=== PATIENT | male | born 1945 | race Caucasian/White ===

== ENCOUNTER 2017-08-04 11:13 | Emergency (ER) | payer OTHER, MEDICARE ==
[~2017-08-04] VITALS: Ht 180.3 cm; Wt 75.2 kg
[~2017-08-04 11:13] MED LIST: ASPIRIN EC81 MG PO; ATENOLOL25 MG PO; BABY ASPIRIN81 MG OR; DOXAZOSIN4 MG PO; FISH OIL1000 MG PO; ISOSORB MONO20 MG PO; LIPITOR20 MG PO; MAVIK2 MG OR; MELOXICAM7.5 MG PO; METFORMIN500 MG PO; NEXIUM40 M1 OR; NIACIN SR500 M1 PO; NITROGLYCER0.4 MG SL; OMEPRAZOLE20 M1 PO; PLAVIX75 MG OR; PRAVACHOL40 MG OR; RANITIDINE150 M1 PO; THIAMINE HCL100 MG PO; TRIAMCINOLON0.51 EX; ZESTRIL40 MG PO; ZETIA10 MG OR
[2017-08-04] MEDS ORDERED: STRIVERDI2.5 MCG/AC IN (12:21)
[2017-08-04] MEDS ORDERED: OXYBUTYNIN5 M1 PO (12:22)
[2017-08-04] MEDS ORDERED: TAMSULOSIN HCL0.4 MG PO (12:23)
[2017-08-04] MEDS ORDERED: AMLODIPINE5 MG PO (12:23)
[2017-08-04] MEDS ORDERED: MELOXICAM7.5 MG PO (12:28)
[2017-08-04] MEDS ORDERED: CLOPIDOGREL75 MG PO (12:30)
[2017-08-04 12:31] LABS: HEMATOCRIT 25.4 % (39.0-50.0); HEMOGLOBIN 8.2 g/dl (14.0-18.0); IMMATURE GRANULOCYTES 0.5 % (0.0-1.0); MEAN CELL VOLUME 95.5 fL CALC (80.0-100.0); MEAN CORPUSCULAR HGB 30.8 pG CALC (26.0-32.0); MEAN CORPUSCULAR HGB CONC 32.3 g/L CALC (32.0-36.0); NEUT# 4.1 thou/uL (1.82-7.42); RED BLOOD COUNT 2.66 mill/uL (4.70-6.10)
[2017-08-04 12:50] LABS: ALBUMIN 4.1 g/dL (3.2-5.0); ALKALINE PHOSPHATASE 62 u/l (38-126); ANION GAP 16 (6-22 (CALC)); BILIRUBIN, TOTAL 0.3 mg/dL (0.0-1.4); BUN 16 mg/dL (8-23); BUN/CREATININE RATIO 12 (12-20 (CALC)); CARBON DIOXIDE 23 mmol/l (22-30); CHLORIDE 106 mmol/l (95-108); CREATININE 1.4 mg/dL (0.7-1.3); GFR 50 ML/MIN (>=60 (CALC)); GFR FOR AFR.AMER. 60 ML/MIN (>=60 (CALC)); SGOT/AST 34 u/l (19-48); SGPT/ALT 26 u/l (11-66); SODIUM 140 mmol/l (137-146); TOTAL PROTEIN 6.7 g/dL (6.3-8.2)
[2017-08-04 12:51] LABS: POTASSIUM 5.2 mmol/l (3.5-5.1)
[2017-08-04 12:59] LABS: MYOGLOBIN 32 ng/mL (0 - 121)
[2017-08-04] MEDS ORDERED: ANTIVERT PO (13:11)
[2017-08-04 13:19] VITALS: BP 174/70
== END 2017-08-04 13:24 | disposition home or self-care (01) | DRG 149 ==
LOC: ED 11:13
PROVIDERS: Emergency Medicine
DX: H81.10 Benign paroxysmal vertigo, unspecified ear (principal); D64.9 Anemia, unspecified; R94.31 Abnormal electrocardiogram [ECG] [EKG]

== ENCOUNTER 2017-09-04 02:08 | Emergency (ER) | payer OTHER, MEDICARE ==
[~2017-09-04] VITALS: Ht 180.3 cm; Wt 74.2 kg
[~2017-09-04 02:08] MED LIST changes: +AMLODIPINE5 MG PO; +ANTIVERT PO; +CLOPIDOGREL75 MG PO; +OXYBUTYNIN5 M1 PO; +STRIVERDI2.5 MCG/AC IN; +TAMSULOSIN HCL0.4 MG PO
[2017-09-04] MEDS ORDERED: FERROUS GLUC324 MG PO (02:23)
[2017-09-04] MEDS ORDERED: AMLODIPINE BESYL5 MG PO (02:24)
[2017-09-04] MEDS ORDERED: VITAMIN B-1100 M1 PO (02:25)
[2017-09-04] MEDS ORDERED: CENTRUM SILVER PO (02:25)
[2017-09-04] MEDS ORDERED: TORADOL PO (04:28)
[2017-09-04] MEDS ORDERED: MEDDOSEPAK PO (04:28)
[2017-09-04 04:30] VITALS: BP 136/74
== END 2017-09-04 04:42 | disposition home or self-care (01) | DRG 552 ==
LOC: ED 02:08
DX: M47.812 Spondylosis without myelopathy or radiculopathy, cervical region (principal); M54.2 Cervicalgia; X50.1XXA Overexertion from prolonged static or awkward postures, initial encounter; Y93.89 Activity, other specified; Y92.007 Garden or yard of unspecified non-institutional (private) residence as the place of occurrence of the external cause

== ENCOUNTER 2018-06-18 12:47 | Emergency (ER) | payer OTHER, MEDICARE ==
[~2018-06-18] VITALS: Ht 180.3 cm; Wt 75.0 kg
[~2018-06-18 12:47] MED LIST changes: +AMLODIPINE BESYL5 MG PO; +CENTRUM SILVER PO; +FERROUS GLUC324 MG PO; +MEDDOSEPAK PO; +TORADOL PO; +VITAMIN B-1100 M1 PO
[2018-06-18] MEDS ORDERED: TRAMADOL HCL50 MG PO (13:08)
[2018-06-18] MEDS ORDERED: ATENOLOL50 MG PO (13:10)
[2018-06-18] MEDS ORDERED: LISINOPRIL20 MG PO (13:11)
[2018-06-18] MEDS ORDERED: VITAMIN D31000 UNI1 PO (13:13)
[2018-06-18 13:41] LABS: IMMATURE GRANULOCYTES 0.4 % (0.0-5.0); MEAN CELL VOLUME 91.4 fL CALC (80.0-100.0); MEAN CORPUSCULAR HGB 32.5 pG CALC (26.0-32.0); MEAN CORPUSCULAR HGB CONC 35.5 g/L CALC (32.0-36.0); NEUT# 8.25 thou/uL (1.82-7.42); RED BLOOD COUNT 4.19 mill/uL (4.70-6.10)
[2018-06-18 13:47] LABS: HEMATOCRIT 38.3 % (39.0-50.0); HEMOGLOBIN 13.6 g/dl (14.0-18.0)
[2018-06-18 13:54] LABS: ALBUMIN 4.4 g/dL (3.2-5.0); ALKALINE PHOSPHATASE 82 u/l (38-126); BUN 10 mg/dL (8-23); BUN/CREATININE RATIO 15 (12-20 (CALC)); CARBON DIOXIDE 25 mmol/l (22-30); CHLORIDE 96 mmol/l (95-108); CREATININE 0.6 mg/dL (0.7-1.3); GFR > 60 ML/MIN (>=60 (CALC)); GFR FOR AFR.AMER. > 60 ML/MIN (>=60 (CALC)); LIPASE 136 u/l (23-300); POTASSIUM 4.3 mmol/l (3.5-5.1); SGOT/AST 42 u/l (19-48); TOTAL PROTEIN 7.2 g/dL (6.3-8.2)
[2018-06-18 14:07] LABS: ANION GAP 14 (6-22 (CALC)); SODIUM 131 mmol/l (137-146)
[2018-06-18 16:58] VITALS: BP 136/78
== END 2018-06-18 17:06 | disposition home or self-care (01) | DRG 948 ==
LOC: ED 12:47
PROVIDERS: Family Medicine
DX: R53.1 Weakness (principal); J44.9 Chronic obstructive pulmonary disease, unspecified; I10 Essential (primary) hypertension; I25.2 Old myocardial infarction; I65.23 Occlusion and stenosis of bilateral carotid arteries; Z95.5 Presence of coronary angioplasty implant and graft
CPT/HCPCS: Q9967

== ENCOUNTER 2018-07-26 00:41 | Emergency (ER) | payer OTHER, MEDICARE ==
[~2018-07-26] VITALS: Ht 180.3 cm; Wt 75.0 kg
[~2018-07-26 00:41] MED LIST changes: +ATENOLOL50 MG PO; +LISINOPRIL20 MG PO; +TRAMADOL HCL50 MG PO; +VITAMIN D31000 UNI1 PO
[2018-07-26 03:29] VITALS: BP 141/76
== END 2018-07-26 03:30 | disposition home or self-care (01) | DRG 151 ==
LOC: ED 00:41
PROC: 2Y41X5Z Packing of Nasal Region using Packing Material (ICD-10-PCS; principal; 2018-07-26)
DX: R04.0 Epistaxis (principal); J44.9 Chronic obstructive pulmonary disease, unspecified; I10 Essential (primary) hypertension; I25.2 Old myocardial infarction; Z95.5 Presence of coronary angioplasty implant and graft; Z79.82 Long term (current) use of aspirin; Z79.02 Long term (current) use of antithrombotics/antiplatelets

== ENCOUNTER 2019-08-21 | Emergency (ER) | payer OTHER, MEDICARE ==
[2019-08-21 13:40] LABS: HEMATOCRIT 36.6 % (39.0-50.0); HEMOGLOBIN 12.4 g/dl (14.0-18.0); IMMATURE GRANULOCYTES 0.5 % (0.0-5.0); MEAN CELL VOLUME 96.8 fL CALC (80.0-100.0); MEAN CORPUSCULAR HGB 32.8 pG CALC (26.0-32.0); MEAN CORPUSCULAR HGB CONC 33.9 g/L CALC (32.0-36.0); NEUT# 9.56 thou/uL (1.82-7.42); RED BLOOD COUNT 3.78 mill/uL (4.70-6.10); RED CELL DISTRI WIDTH 12.5 % (11.5-15.5)
[2019-08-21 14:02] LABS: INTERNATIONAL NORMALIZED RATIO 0.9 RATIO (0.7-1.3); PROTHROMBIN TIME 9.8 SECONDS (9.0-12.5)
[2019-08-21 14:03] LABS: ALBUMIN 4.2 g/dL (3.2-5.0); ALKALINE PHOSPHATASE 77 u/l (38-126); ANION GAP 12 (6-22 (CALC)); BILIRUBIN, TOTAL 1.2 mg/dL (0.0-1.4); BUN 20 mg/dL (8-23); BUN/CREATININE RATIO 22 (12-20 (CALC)); CARBON DIOXIDE 27 mmol/l (22-30); CHLORIDE 94 mmol/l (95-108); CREATININE 0.9 mg/dL (0.7-1.3); GFR > 60 ML/MIN (>=60 (CALC)); GFR FOR AFR.AMER. > 60 ML/MIN (>=60 (CALC)); POTASSIUM 3.7 mmol/l (3.5-5.1); SGOT/AST 34 u/l (19-48); SODIUM 129 mmol/l (137-146); TOTAL PROTEIN 7.6 g/dL (6.3-8.2)
== END 2019-08-21 18:30 | disposition short-term general hospital (02) | DRG 66 ==
PROVIDERS: Family Medicine
PROC: 0S9D3ZZ Drainage of Left Knee Joint, Percutaneous Approach (ICD-10-PCS; principal; 2019-08-21)
DX: I63.9 Cerebral infarction, unspecified (principal); G83.14 Monoplegia of lower limb affecting left nondominant side; R29.702 NIHSS score 2; M25.562 Pain in left knee; I10 Essential (primary) hypertension; J44.9 Chronic obstructive pulmonary disease, unspecified; I25.2 Old myocardial infarction; Z95.5 Presence of coronary angioplasty implant and graft

== ENCOUNTER 2019-09-08 | Emergency (ER) | payer OTHER, MEDICARE ==
[2019-09-08] MEDS ORDERED: MAGNESIUM400 M1 PO (10:20)
[2019-09-08 10:48] LABS: HEMATOCRIT 36.2 % (39.0-50.0); HEMOGLOBIN 12.2 g/dl (14.0-18.0); IMMATURE GRANULOCYTES 0.6 % (0.0-5.0); MEAN CELL VOLUME 96.3 fL CALC (80.0-100.0); MEAN CORPUSCULAR HGB 32.4 pG CALC (26.0-32.0); MEAN CORPUSCULAR HGB CONC 33.7 g/L CALC (32.0-36.0); NEUT# 7.29 thou/uL (1.82-7.42); RED BLOOD COUNT 3.76 mill/uL (4.70-6.10); RED CELL DISTRI WIDTH 13.1 % (11.5-15.5)
[2019-09-08 11:17] LABS: ANION GAP 12 (6-22 (CALC)); BUN 12 mg/dL (8-23); BUN/CREATININE RATIO 15 (12-20 (CALC)); CARBON DIOXIDE 28 mmol/l (22-30); CHLORIDE 98 mmol/l (95-108); CREATININE 0.8 mg/dL (0.7-1.3); GFR > 60 ML/MIN (>=60 (CALC)); GFR FOR AFR.AMER. > 60 ML/MIN (>=60 (CALC)); POTASSIUM 4.3 mmol/l (3.5-5.1); SODIUM 134 mmol/l (137-146)
[2019-09-08 13:10] LABS: URINE BILIRUBIN - DIPSTICK NEGATIVE (NEGATIVE); URINE BLOOD DIPSTICK LARGE (NEGATIVE); URINE COLOR RED; URINE GLUCOSE - DIPSTICK NEGATIVE (NEGATIVE); URINE KETONE NEGATIVE (NEGATIVE); URINE NITRITE - DIPSTICK NEGATIVE (Negative); URINE PH 7.5 (4.5-8.0); URINE PROTEIN - DIPSTICK 30 mg/dL (NEG-TRACE); URINE SPECIFIC GRAVITY 1.015; URINE UROBILINOGEN - DIPSTICK 0.2 E.U./dL (0.2)
[2019-09-08 13:17] LABS: URINE LEUK ESTERASE MODERATE (NEGATIVE)
[2019-09-08 13:27] LABS: URINE RBC >100 RBC/hpf (0-5)
== END 2019-09-08 12:54 | disposition home or self-care (01) | DRG 696 ==
PROVIDERS: Family Medicine
PROC: 0T9B70Z Drainage of Bladder with Drainage Device, Via Natural or Artificial Opening (ICD-10-PCS; principal; 2019-09-08)
DX: R31.9 Hematuria, unspecified (principal); I10 Essential (primary) hypertension; J44.9 Chronic obstructive pulmonary disease, unspecified; I25.2 Old myocardial infarction; Z95.5 Presence of coronary angioplasty implant and graft; Z79.82 Long term (current) use of aspirin; Z79.02 Long term (current) use of antithrombotics/antiplatelets; Z98.890 Other specified postprocedural states

== ENCOUNTER 2019-09-13 | Emergency (ER) | payer OTHER, MEDICARE ==
[~2019-09-13] MED LIST changes: +MAGNESIUM400 M1 PO
[2019-09-13 21:44] LABS: ACT PARTIAL THROMBO TIME 27.5 SECONDS (20.0-32.5); ALBUMIN 4.2 g/dL (3.2-5.0); ALKALINE PHOSPHATASE 81 u/l (38-126); ANION GAP 17 (6-22 (CALC)); BUN 9 mg/dL (8-23); BUN/CREATININE RATIO 10 (12-20 (CALC)); CARBON DIOXIDE 24 mmol/l (22-30); CHLORIDE 91 mmol/l (95-108); CREATININE 0.8 mg/dL (0.7-1.3); ETHYL ALCOHOL 278 mg/dl (0-30); GFR > 60 ML/MIN (>=60 (CALC)); GFR FOR AFR.AMER. > 60 ML/MIN (>=60 (CALC)); INTERNATIONAL NORMALIZED RATIO 0.9 RATIO (0.7-1.3); POTASSIUM 3.7 mmol/l (3.5-5.1); PROTHROMBIN TIME 9.6 SECONDS (9.0-12.5); SGOT/AST 34 u/l (19-48); SODIUM 129 mmol/l (137-146); TOTAL PROTEIN 7.1 g/dL (6.3-8.2)
[2019-09-13 21:48] LABS: HEMATOCRIT 35.2 % (39.0-50.0); HEMOGLOBIN 12.1 g/dl (14.0-18.0); IMMATURE GRANULOCYTES 0.5 % (0.0-5.0); MEAN CELL VOLUME 95.7 fL CALC (80.0-100.0); MEAN CORPUSCULAR HGB 32.9 pG CALC (26.0-32.0); MEAN CORPUSCULAR HGB CONC 34.4 g/L CALC (32.0-36.0); NEUT# 3.88 thou/uL (1.82-7.42); RED BLOOD COUNT 3.68 mill/uL (4.70-6.10); RED CELL DISTRI WIDTH 13.3 % (11.5-15.5)
[2019-09-13 21:49] LABS: BILIRUBIN, TOTAL 0.5 mg/dL (0.0-1.4)
== END 2019-09-13 23:00 | DRG 552 ==
DX: S12.120A Other displaced dens fracture, initial encounter for closed fracture (principal); S00.81XA Abrasion of other part of head, initial encounter; F10.129 Alcohol abuse with intoxication, unspecified; I10 Essential (primary) hypertension; J44.9 Chronic obstructive pulmonary disease, unspecified; I25.2 Old myocardial infarction; W01.0XXA Fall on same level from slipping, tripping and stumbling without subsequent striking against object, initial encounter; Y92.29 Other specified public building as the place of occurrence of the external cause; Z95.5 Presence of coronary angioplasty implant and graft

== ENCOUNTER 2019-09-29 23:19 | Inpatient (IN) | payer OTHER, MEDICARE ==
[~2019-09-29] VITALS: Ht 180.3 cm; Wt 54.4 kg
--- NOTE | 2019-09-29 23:20 | NUR ---
PATIENT TO ROOM 9 VIA EMS STRETCHER. PATIENT APPEARS CALM WITH REGULAR RESPIRATIONS. MD AT BEDSIDE FOR EVAL. PATIENT IS ABLE TO SPEAK CLEARLY WITH THE EXCEPTION OF NO DENTURES IN PLACE. STATES HE "LOST HIS BREATH" WHILE DRINKING TEA AND HE IS FEELING BETTER NOW. PATIENT HAD RECENT CERVICAL SX AND HAS AN ASPEN COLLAR IN PLACE. DENIES ANY C/O OF SOB AT PRESENT. TRIAGE COMPLETED AT BEDSIDE.
[2019-09-29] MEDS ORDERED: VITAMIN B-1100 M1 PO (23:37)
[2019-09-29 23:50] LABS: HEMATOCRIT 34.9 % (39.0-50.0); HEMOGLOBIN 11.6 g/dl (14.0-18.0); IMMATURE GRANULOCYTES 3.9 % (0.0-5.0); MEAN CELL VOLUME 95.1 fL CALC (80.0-100.0); MEAN CORPUSCULAR HGB 31.6 pG CALC (26.0-32.0); MEAN CORPUSCULAR HGB CONC 33.2 g/dL CAL (32.0-36.0); NEUT# 13.45 thou/uL (1.82-7.42); RED BLOOD COUNT 3.67 mill/uL (4.70-6.10)
--- NOTE | 2019-09-29 23:53 | NUR ---
CLEAR BILAT BREATH SOUNDS NO COUGH NO CONGESTION SPEECH CLEAR NO DIFF SWALLOWING DENIES DYSPNEA.STATES HE FEELS BETTER AFTER BRIEF CHOKING EPISODE WITH DRINKING TEA AT HOME DEXTER
[2019-09-30] VITALS (8 sets, daily range): BP systolic 122–146; BP diastolic 56–79
[2019-09-30 00:05] LABS: ALKALINE PHOSPHATASE 96 u/l (38-126); ANION GAP 14 (6-22 (CALC)); BUN 25 mg/dL (8-23); BUN/CREATININE RATIO 29 (12-20 (CALC)); CARBON DIOXIDE 23 mmol/l (22-30); CHLORIDE 98 mmol/l (95-108); CREATININE 0.9 mg/dL (0.7-1.3); GFR > 60 ML/MIN (>=60 (CALC)); GFR FOR AFR.AMER. > 60 ML/MIN (>=60 (CALC)); POTASSIUM 4.1 mmol/l (3.5-5.1); SODIUM 131 mmol/l (137-146); TOTAL PROTEIN 5.8 g/dL (6.3-8.2)
[2019-09-30 00:07] LABS: ALBUMIN 2.9 g/dL (3.2-5.0); BILIRUBIN, TOTAL 1.2 mg/dL (0.0-1.4); SGOT/AST 70 u/l (19-48)
--- NOTE | 2019-09-30 00:32 | NUR ---
LAB DRAWS ADDITIONAL LABS P
[2019-09-30 00:41] LABS: LIPASE 252 u/l (23-300)
--- NOTE | 2019-09-30 01:40 | NUR ---
NO COUGH NO CONGESSTION NO PAIN OF ANY SOURCE.SR NO ECTOPY W/P/D SKIN NO SOB
--- NOTE | 2019-09-30 01:55 | NUR ---
PHONE REPORT TO NURSE DANISH ZIEGLER ON MS
--- NOTE | 2019-09-30 02:00 | NUR ---
PT TRQANSPORTED TO MS RM 261 VIA WC IN STABLE CONDITION
--- NOTE | 2019-09-30 02:00 | NUR ---
PT ARRIVED TO THE FLOOR VIA WC ACCOMPANIED BY ED NURSE. PT APPEARS IN STABLE CONDITION. PT IS COUGHING, DENIES PRODUCTIVE COUGH, DRY HACKING COUGH REPORTED FOR A WEEK. V/S ASSESSED AND PT ORIENTED TO ROOM, BED, CALL SYSTEM AND LIGHTS. PT ADMISSION AND ASSESSMENT COMPLETED AT THIS TIME. POC DISCUSSED W/PT. PT MADE COMFORTABLE AND LIGHTS TURNED LOW. PT DENIES ANY OTHER NEEDS AT THIS TIME. CALL LIGHT REVIEWED W/PT AND HE HAS BEEN ENCOURAGED TO CALL NEEDS ARISE.
[2019-09-30 04:56] LABS: HEMATOCRIT 34.6 % (39.0-50.0); HEMOGLOBIN 11.5 g/dl (14.0-18.0); IMMATURE GRANULOCYTES 4.6 % (0.0-5.0); MEAN CELL VOLUME 95.8 fL CALC (80.0-100.0); MEAN CORPUSCULAR HGB 31.9 pG CALC (26.0-32.0); MEAN CORPUSCULAR HGB CONC 33.2 g/dL CAL (32.0-36.0); NEUT# 10.39 thou/uL (1.82-7.42); RED BLOOD COUNT 3.61 mill/uL (4.70-6.10)
--- NOTE | 2019-09-30 07:00 | NUR ---
REPORT RECEIVED FROM KARLIE TEIXEIRA;PT APPEARS TO BE SLEEPING IN SEMI FOWLERS POSITION;RESPIRATIONS EVEN AND UNLABORED ON RA;NO S/S OF DISTRESS NOTED;TELE MONITORING IN PLACE;IV FLUIDS INFUSING WITH EASE PER ORDER;ALL SAFETY PRECAUTIONS IN PLACE WITH BED IN THE LOWEST POSITION AND CALL LIGHT IN REACH;WILL CONTINUE TO MONITOR
--- NOTE | 2019-09-30 08:00 | NUR ---
PT RESTING IN SEMI FOWLERS POSITION,A&O X3 WITH GARBLED SPEECH NOTED;ASSESSMENT COMPLETED;PT DENIES ANY CURRENT PAIN OR DISCOMFORTS,PAIN SCALE AND REPORTING EDUCATED;RESPIRATIONS EVEN AND UNLABORED ON RA,CLEAR LUNG SOUNDS WITH FREQUENT NON-PRODUCTIVE COUGH NOTED;CERVICAL COLLAR IN PLACE;ABDOMEN SOFT ON PALPATION AND ACTIVE IN ALL 4 QUADRANTS;STRONG PEDAL PULSES;SKIN INTACT;TELE MONITORING IN PLACE;EMS #18G TO RAC INFUSING NS @ 125ML/HR,SITE APPEARS HEALTHY;NPO DIET REINFORCED;PT DENIES ANY ADDITIONAL NEEDS AND IS ENCOURAGED TO CALL FOR ASSISTANCE IF NEEDED;FALL PRECAUTIONS IN PLACE WITH BED IN THE LOWEST POSITION AND CALL LIGHT IN REACH;WILL CONTINUE TO MONITOR
--- NOTE | 2019-09-30 10:30 | NUR ---
AT BEDSIDE DISCUSSING POC WITH PT.
--- NOTE | 2019-09-30 10:35 | NUR ---
PT RESTING IN SEMI FOWLERS POSITION;DENIES ANY CURRENT PAIN OR DISCOMFORTS;RESPIRATIONS REMAIN EVEN AND UNLABORED ON RA;IV FLUIDS INFUSING WITH EASE PER ORDER;TELE MONITORING IN PLACE;NPO DIET REINFORCED;PT ENCOURAGED TO CALL FOR ASSISTANCE IF NEEDED;CALL LIGHT IN REACH;WILL CONTINUE TO MONITOR
--- NOTE | 2019-09-30 13:00 | NUR ---
PT APPEARS TO BE SLEEPING IN SEMI FOWLERS POSTION;NO S/S OF DISTRESS NOTED;RESPIRATIONS EVEN AND UNLABORED ON RA,HOB ELEVATED 30 DEGREES;IV FLUIDS INFUSING WITH EASE;TELE MONITORING IN PLACE;ALL SAFETY PRECAUTIONS REINFORCED WITH BED IN THE LOWEST POSITION AND CALL LIGHT IN REACH;WILL CONTINUE TO MONITOR
--- NOTE | 2019-09-30 14:59 | NUR ---
PT IS RESTING WITH EYES CLOSED
--- NOTE | 2019-09-30 16:15 | NUR ---
PT IS RELAXING IN BED WITH NO DISTRESS NOTED. IV SITE IS FREE FROM REDNESS OR EDEMA.
--- NOTE | 2019-09-30 19:30 | NUR ---
PT CALLED TO REPORT THAT HE FELT SOB. V/S ASSESSED. 02SAT LEVEL @94%RA. PT PLACED ON 2LNC 02 TO INCREASE 02 LEVEL AND FOR COMFORT. PT DENIES CP. PT DOES NOT APPEAR TO BE BREATHING HEAVY OR HAVING DIFFICULTY BREATHING, JUST STATES THAT HE DOES NOT FEEL LIKE HE IS GETTING ENOUGH AIR. PT HAS C-COLLAR ON AND IS LAYING IN LOW FOWLERS POSITION. ASSISTED PT POSITIONING FOR COMFORT. RESP NOTIFIED, PHYSICIAN NOTIFIED FOR NEW ORDERS. PT REPORTS HE TAKES BREATHING TREATMENTS AT HOME, BUT I AM NOT SEEING ANY ON HIS MED-REQ. PT DOES HAVE HISTORY OF COPD. NEW ORDERS RECEIVED.
--- NOTE | 2019-09-30 20:32 | NUR ---
RESP IN W/PT AT THIS TIME.
--- NOTE | 2019-09-30 23:31 | NUR ---
PT MEDICATED ORDERS PROVIDE. NO S/O DISTRESS NOTED. PT SLEEPING AT THIS TIME. V/S ASSESSED.
[2019-10-01] VITALS (11 sets, daily range): BP systolic 106–149; BP diastolic 61–84
[2019-10-01 04:53] LABS: ALBUMIN 2.4 g/dL (3.2-5.0); ALKALINE PHOSPHATASE 83 u/l (38-126); ANION GAP 11 (6-22 (CALC)); BUN 10 mg/dL (8-23); BUN/CREATININE RATIO 16 (12-20 (CALC)); CARBON DIOXIDE 24 mmol/l (22-30); CHLORIDE 101 mmol/l (95-108); CREATININE 0.6 mg/dL (0.7-1.3); GFR > 60 ML/MIN (>=60 (CALC)); GFR FOR AFR.AMER. > 60 ML/MIN (>=60 (CALC)); POTASSIUM 3.3 mmol/l (3.5-5.1); SGOT/AST 54 u/l (19-48); SODIUM 132 mmol/l (137-146)
[2019-10-01 04:54] LABS: BILIRUBIN, TOTAL 0.6 mg/dL (0.0-1.4)
--- NOTE | 2019-10-01 05:34 | NUR ---
IV ANTIBIOTIC THERAPY ADMINISTERED AT THIS TIME. PT ASKING TO GET IN THE SHOWER, ASKED PT TO WAIT UNTIL ANTIBIOTIC THERAPY IS COMPLETED, PT AGREED.
--- NOTE | 2019-10-01 07:27 | NUR ---
SHIFT CHANGE REPORT, PT AWAKE ALERT AND ORIENTED SITTING UP ON SIDE OF BED, CERVICAL COLLAR IN PLACE, IVF INFUSING, STATES HE IS ABOUT TO SHAVE BUT GOT SOB SO HE IS RESTING AT THIS TIME, CALL CARRERA IN RECH, WILL CONTINUE TO MONITOR.
[2019-10-01 08:55] LABS: HEMATOCRIT 32.8 % (39.0-50.0); HEMOGLOBIN 10.9 g/dl (14.0-18.0); MEAN CELL VOLUME 94.5 fL CALC (80.0-100.0); MEAN CORPUSCULAR HGB 31.4 pG CALC (26.0-32.0); MEAN CORPUSCULAR HGB CONC 33.2 g/dL CAL (32.0-36.0); RED BLOOD COUNT 3.47 mill/uL (4.70-6.10); RED CELL DISTRI WIDTH 12.8 % (11.5-15.5)
--- NOTE | 2019-10-01 11:00 | NUR ---
DR HAWLEY CONSULTED AND INFORMED/DISCUSED PEG TUBE PLACEMENT WITH PT WHO STATED UNDERSTANDING AND CONSENTED TO PROCEDURE.
--- NOTE | 2019-10-01 12:28 | NUR ---
OR TEAM HERE AT THIS TIME RECEIVING PT AND TRANSPORTING VIA STRETCHER TO OR, PT ALERE AND ORIENTED.
--- NOTE | 2019-10-01 12:45 | NUR ---
SITTING UP IN CHAIR, FIRST UNIT PRBC COMPLETED WITHOUT ANY ADVERSE REACTION, TOLERATED WELL. UNABLE TO START NEW IV DUE TO VEIN CONDITION, WILL CONTINUE TO MONITOR.
--- NOTE | 2019-10-01 14:10 | NUR ---
HAND OFF REPORT RECEIVED FROM SREEKANTHCASING MIXER. NO FEEDING PER PEG TUBE TODAY. PAIN OF 6/[address] VIZCARRA NOTIFIED. ORDER RECEIVED FOR MORPHINE SULFATE IV. FORM CARPENTER CONSULTED WITH CAREYPHARMACIST. PT STATES THAT HE HAS NOT HAD SIDE EFFECT TO MORPHINE. PT STATES THAT HE TOLERATED MORPHINE SULFATE PREVIOUSLY. FORM CARPENTER WILL CONTINUE TO MONITOR.
--- NOTE | 2019-10-01 14:41 | NUR ---
NURSE ZHENG SPOKE WITH PT REGARDING CODEINE ALLERGY, PT STATES HE HAS RECEIVED MORPHINE IN THE PAST WITH NO PROBLEM/REACTION. PT ALSO RECEIVED HERE IN 2005. VERIFIED ORDER FOR MORPHINE PRN PAIN
--- NOTE | 2019-10-01 16:12 | NUR ---
PATIENT RESTING COMFORTABLY IN ROOM. PT REMAINS NPO. DAY CARE SUPERVISOR WILL CONTINUE TO MONITOR.
--- NOTE | 2019-10-01 16:26 | NUR ---
PT note Patient is seen for postop functional exam. He is able to move all extremities without difficulty but is very painful in his abdomen. Functionally he is limited by postop pain so I will see him tomorrow as well but he should do well to go home with continued home health as soon as possible. He will easily be able to log roll and transfer and has a supportive family
--- NOTE | 2019-10-01 17:26 | NUR ---
PCG, PT'S CALLED AND REQUESTING THAT BUFFING LINE SET UP WORKER NOTIFY CASE MANAGEMENT THAT SHE WANTS FEEDING TUBE SUPPLIES; LIKE [employer] FOR BOLUS FEEDING; SHE ALSO REQUESTED PEG TUBE SITE DRESSINGS; NEBULIZER MACHINE; AND SUCTION MACHINE. SHE STATES THAT SHE USE [facility] AND WILL LIKE TO RECEIVE PHYSIAN ORDERS FOR ALL THE ABOVE. SHE IS REQUESTING THAT CASE MANAGEMENT FOLLOW UP WITH THE [facility]. MEDICAL OFFICE TECHNOLOGY INSTRUCTOR NOTIFIED. INFORMATION PLACED ON CASE MANAGEMENT DOOR.
--- NOTE | 2019-10-01 17:32 | NUR ---
PCG ALSO REQUESTING PEG TUBE FEEDING SUPPLIES
--- NOTE | 2019-10-01 22:00 | NUR ---
REPORT RECEIVED FROM Geovanna KUMAR RN, CARE OF PT ASSUMED @ THIS TIME.
--- NOTE | 2019-10-02 00:11 | NUR ---
PT RESTING IN BED, APPEARS COMFORTABLE AND IN NO APPARENT DISTRESS. HOB ELEVATED 45 DEGREES. CALL CARRERA WITHIN REACH. BED LOCKED IN LOW POSITION W/ BEDRAILS X2. ITEMS WITHIN REACH.
[2019-10-02 00:40] VITALS: BP 119/69
[2019-10-02 04:29] VITALS: BP 119/70
--- NOTE | 2019-10-02 04:35 | NUR ---
PT APPEARS TO BE SLEEPING COMFORTABLY. NO APPARENT DISTRESS. RESPIRATIONS REGULAR AND UNLABORED. CALL CARRERA REMAINS WITHIN REACH, FALL AND SAFETY INTERVENTIONS REMAIN IN PLACE.
[2019-10-02 05:23] LABS: HEMATOCRIT 30.2 % (39.0-50.0); HEMOGLOBIN 9.8 g/dl (14.0-18.0); MEAN CELL VOLUME 96.5 fL CALC (80.0-100.0); MEAN CORPUSCULAR HGB 31.3 pG CALC (26.0-32.0); MEAN CORPUSCULAR HGB CONC 32.5 g/dL CAL (32.0-36.0); RED BLOOD COUNT 3.13 mill/uL (4.70-6.10); RED CELL DISTRI WIDTH 13.2 % (11.5-15.5)
[2019-10-02 05:45] LABS: ALBUMIN 2.4 g/dL (3.2-5.0); ALKALINE PHOSPHATASE 86 u/l (38-126); ANION GAP 11 (6-22 (CALC)); BILIRUBIN, TOTAL 0.6 mg/dL (0.0-1.4); BUN 6 mg/dL (8-23); BUN/CREATININE RATIO 10 (12-20 (CALC)); CARBON DIOXIDE 25 mmol/l (22-30); CHLORIDE 99 mmol/l (95-108); CREATININE 0.6 mg/dL (0.7-1.3); GFR > 60 ML/MIN (>=60 (CALC)); GFR FOR AFR.AMER. > 60 ML/MIN (>=60 (CALC)); POTASSIUM 3.3 mmol/l (3.5-5.1); SGOT/AST 47 u/l (19-48); SODIUM 132 mmol/l (137-146); TOTAL PROTEIN 5.1 g/dL (6.3-8.2)
--- NOTE | 2019-10-02 08:28 | NUR ---
PT note Attempted to see patient He appeared to be resting confortably He adamantly refuses to get OOB telling me he hurts when he moves. I described log rolling to him. He again refused to get OOB. He does tell me he has been out of bed with nursing. For now, he appears to have good pain control but has anxiety about moving. I explained he needed to be on his feet at least 6 x daily but he again refused Plan to continue to encourage him. I also have explained splinted deep breathing and coughing to him which he did demonstrate
[2019-10-02 08:54] VITALS: BP 137/82
--- NOTE | 2019-10-02 08:54 | NUR ---
PT RESTING IN BED, NO SIGNS OF DISTRESS NOTED, RESP EVEN AND UNLABORED. SHALLOW/MINIMAL EFFORT. NOT PT HAS A MOIST PRODUCTIVE COUGH, PT IS SWALLOWING SPUTUM. ENCOURAGED DEEP BREATHING, PT 02 SAT 89-90% RA, PLACED PT ON 02 2L NC, SPO2 INCREASED TO 94%. PEG TUBE TO L SIDE DRESSING INTACT, C-COLLAR IN PLACE, NOTED PT HAS RED/PURPLE COLORED AREA TO L SIDE OF NECK WITH NODULES. ASSESSMENT COMPLETED, CALL LIGHT IN REACH,CONTINUE TO MONITOR.
--- NOTE | 2019-10-02 10:11 | NUR ---
PT REFUSING TO GO DOWN TO RADIOLOGY FOR CXR, STATES,"I AM NOT DOING A DAMN THING." MANAGER ORGANIZATIONAL AT BEDSIDE.
--- NOTE | 2019-10-02 11:00 | NUR ---
CALL MADE TO REGARDING USE OF PEG TUBE. PER MD STATES OK TO USE. DISCUSSED HYDROGRAPHIC SURVEYOR RECOMMENDATIONS WITH FUEL OIL CLERK, ORDERS FOR TUBE FEEDINGS.
[2019-10-02 11:07] VITALS: BP 131/81
--- NOTE | 2019-10-02 11:34 | NUR ---
PT RESTING IN BED, DISCUSSED TUBE FEEDINGS AND TIMES, PT VERBALIZED UNDERSTANDING. CHECKED PLACEMENT TO PEG TUBE, NO RESIDUAL AT THIS TIME. 2 CANS OF GLUCERNA BOLUS FEEDS GIVEN VIA PEG TUBE, PT TOLERATED WELL. HOB REMAINS ELEVATED AT 30DEG. PT VOICES NO NEEDS OR COMPLAINTS AT THIS TIME, CALL LIGHT IN REACH,CONTINUE TO MONITOR.
--- NOTE | 2019-10-02 13:28 | NUR ---
AND RADIO INTERFERENCE TROUBLE SHOOTER AT BEDSIDE
--- NOTE | 2019-10-02 13:40 | NUR ---
PT AGREED TO GO FOR CXR, PT TAKEN VIA WHEELCHAIR ACCOMPANIED BY PLASTERER MAINTENANCE.
[2019-10-02 15:12] VITALS: BP 120/70
--- NOTE | 2019-10-02 17:00 | NUR ---
DISCUSSED 1700 FEEDING WITH PT AND START OF NEW MEDICATIONS PT TAKES AT HOME, PT AGREED, CHECKED FOR RESIDUAL NONE AT THIS TIME. 2 CANS OF GLUCERNA GIVEN, PT TOLERATED WELL, HOB REMAINS AT 30DEG. NEW IV SITE OBTAINED X1 ATTEMPT. CALL LIGHT IN REACH,CONTINUE TO MONITOR.
--- NOTE | 2019-10-02 19:00 | NUR ---
REPORT RECEIVED FROM Colette STREET LPN, CARE OF PT ASSUMED @ THIS TIME. PT RESTING IN BED, NO APPARENT DISTRESS OR DISCOMFORT. DENIES NEEDS @ THIS TIME. CALL CARRERA WITHIN REACH, AGREES TO CALL PRN.
[2019-10-02 19:09] VITALS: BP 152/67
--- NOTE | 2019-10-02 21:30 | NUR ---
PHYSICAL ASSESMENT COMPLETED. VS TAKEN BY SURVEY STATISTICIAN @ 1909 ASSESSED. PLAN OF CARE REVIEWED, PT VERBALIZES UNDERSTANDING, DENIES QUESTIONS @ THIS TIME. SEE MAR FOR MED ADMINASTRATION. TUBE FEED ADMINISTERED W/O INCIDENT. 0 RESIDUAL. TOLERATED 237ML TF AND 150ML H20 FLUSH. ASPIRATION PRECAUTIONS IN PLACE W/ HOB ELEVATED 30 DEGREES. PT DENIES NEEDS @ THIS TIME, CALL CARRERA WITHIN REACH, AGREES TO CALL PRN. BED LOCKED IN LOW POSITION W/ BEDRAILS UP X2. ITEMS WITHIN REACH.
--- NOTE | 2019-10-02 22:45 | NUR ---
URINE SAMPLE COLLECTED AND SENT TO LAB
[2019-10-02 23:02] LABS: URINE BILIRUBIN - DIPSTICK NEGATIVE (NEGATIVE); URINE BLOOD DIPSTICK SMALL (NEGATIVE); URINE CLARITY CLEAR; URINE COLOR YELLOW; URINE GLUCOSE - DIPSTICK >=1000 mg/dL (NEGATIVE); URINE KETONE NEGATIVE (NEGATIVE); URINE LEUK ESTERASE NEGATIVE (Negative); URINE NITRITE - DIPSTICK NEGATIVE (Negative); URINE SPECIFIC GRAVITY 1.015
[2019-10-02 23:03] LABS: URINE PROTEIN - DIPSTICK NEGATIVE (NEG-TRACE)
[2019-10-02 23:17] LABS: URINE EPITHELIAL CELLS FEW EPI/hpf (0-FEW); URINE WBC 20-50 WBC/hpf (0-5)
[2019-10-02 23:18] LABS: URINE BACTERIA FEW hpf
[2019-10-03] VITALS (7 sets, daily range): BP systolic 128–150; BP diastolic 60–74
--- NOTE | 2019-10-03 01:16 | NUR ---
VS TAKEN BY 5TH GRADE TEACHER @ 0000 ASSESSED. PT APPEARS TO BE SLEEPING COMFORTABLY, NO APPARENT DISTRESS, RESP REGUALR AND UNLABORED. CALL CARRERA REMAINS WITHIN REACH, BED REMAINS LOCKED IN LOW POSITION W/ BEDRAILS UP X2.ITEMS REMAIN WITHIN REACH.
[2019-10-03 05:10] LABS: ALBUMIN 2.4 g/dL (3.2-5.0); ALKALINE PHOSPHATASE 87 u/l (38-126); ANION GAP 11 (6-22 (CALC)); BILIRUBIN, TOTAL 0.4 mg/dL (0.0-1.4); BUN 7 mg/dL (8-23); BUN/CREATININE RATIO 13 (12-20 (CALC)); CARBON DIOXIDE 25 mmol/l (22-30); CHLORIDE 101 mmol/l (95-108); CREATININE 0.5 mg/dL (0.7-1.3); GFR > 60 ML/MIN (>=60 (CALC)); GFR FOR AFR.AMER. > 60 ML/MIN (>=60 (CALC)); POTASSIUM 3.7 mmol/l (3.5-5.1); SGOT/AST 61 u/l (19-48); SODIUM 133 mmol/l (137-146); TOTAL PROTEIN 5.1 g/dL (6.3-8.2)
[2019-10-03 05:21] LABS: HEMATOCRIT 27.3 % (39.0-50.0); HEMOGLOBIN 9.2 g/dl (14.0-18.0); IMMATURE GRANULOCYTES 1.6 % (0.0-5.0); MEAN CELL VOLUME 93.2 fL CALC (80.0-100.0); MEAN CORPUSCULAR HGB 31.4 pG CALC (26.0-32.0); MEAN CORPUSCULAR HGB CONC 33.7 g/dL CAL (32.0-36.0); NEUT# 12.84 thou/uL (1.82-7.42); RED BLOOD COUNT 2.93 mill/uL (4.70-6.10)
--- NOTE | 2019-10-03 06:44 | NUR ---
VS TAKEN BY BIBIANA AM ASSESSED. PT APPEARS TO BE SLEEPING COMFORTABLY, NO APPARENT DISTRESS, RESP REGUALR AND UNLABORED. CALL CARRERA REMAINS WITHIN REACH, BED REMAINS LOCKED IN LOW POSITION W/ BEDRAILS UP X2.ITEMS REMAIN WITHIN REACH.
--- NOTE | 2019-10-03 07:42 | NUR ---
PT LAYING IN BED SLEEPING. AWAKENED TO COMPLETE ASSSSMENT. PT A&O X3. NO DISTRESS NOTED. PEG TUBE IN PLACE. RISIDUAL CHECKED. MINIMAL RISIDUAL NOTED. 2 CANS OF GLUCERNA GIVEN BY KRYSTLE ZIEGLER AT 0700. PT TOLERATED WELL. IS AT BEDSIDE. PT DEMONSTRATED PROPER USE OF DEVICE WITH GOAL SET AT 2000. EXPLAINED TO PT THAT DEVICE SHOULD BE USED X10 EVERY HOUR WHILE AWAKE. PT VERBALIZED UNDERSTANDING. ENCOURAGED PT TO GET OUT OF BED AND INTO A CHAIR, PT AGREED TO GET UP TO THE CHAIR AT LUNCH TIME. NO OTHER NEEDS AT THIS TIME. ASSESSMENT COMPLETED. DISCUSSED POC. CALL LIGHT IN REACH. CONTINUE TO MONITOR.
--- NOTE | 2019-10-03 11:59 | NUR ---
PT REFUSED FEEDING. PER PT "I AM NOT HUNGRY AND I DO NOT NEED THAT RIGHT NOW"
--- NOTE | 2019-10-03 12:30 | NUR ---
PT UP TO CHAIR SLEEPING. NO DISTRESS NOTED. CALL LIGHT IN REACH. CONTINUE TO MONITOR.
--- NOTE | 2019-10-03 15:30 | NUR ---
1 CAN OF GLUCERNA GIVEN. PT TOLERATED WELL
--- NOTE | 2019-10-03 19:30 | NUR ---
ASSESSMENT COMPLETED. IV SITE PATENT AND INFUSING ORDERED IVF WELL. DENIES NEEDS/PAIN. PT. REPORTS HE SPOKE WITH MD TO UPON ROUNDS IN REGARDS TO WANTING AN MRI OF HEAD R/T GARBLED/SLURRED SPEECH. PT. REPORTS THIS HAS BEEN THE SAME ON THIS ADMISSION, NO WORSENING. PLACED NOTE ON CHART A REMINDER FOR PT'S REQUEST FOR MRI. C-COLLAR IN PLACE. PEG TUBE INTACT AND CLAMPED. REMINDED PT. FOR NEED OF HOB TO BE ELEVATED 30 DEGREES, PLACED HIM INTO THIS POSITION AT THIS TIME. ENCOURAGED TO CALL FOR ANY NEEDS. CALL LIGHT IS IN REACH.
--- NOTE | 2019-10-03 23:32 | NUR ---
PT. RESTING IN BED WITH NO DISTRESS NOTED. RE-INSTRUCTED ON NEED TO REMAIN WITH HOB ELEAVTED ATLEAST 30DEGREES AND VERBALIZES UNDERSTANDING. CHARAN FISHER. DENIES NEEDS. PT. REPORTS HE IS UNSURE IF THE FORMULA WE ARE GIVING HIM VIA PEG TUBE IS IRRITATING STOMACH AND WILL DISCUSS THESE CONCERNS WITH MD TOMORROW AM.
--- NOTE | 2019-10-04 02:05 | NUR ---
PT. C/O ABDOMINAL INCISION PAIN AND MEDICATED WITH ORDERED PRN MORPHINE, WILL REASSESS. PT. REPORTS HX; OF WOUND TO COCCYX, INSPECTED AREA IS DARKENED COLOR APPEARS DRY; APPLIED AQUACEL FOAM DRESSING TO PREVENT BREAKDOWN AND ENCOURAGE TO REPOSITION OFTEN; VERBALIZES UNDERSTANDING. DENIES FURTHER NEEDS. CALL LIGHT AND URINAL IN PLACE.
[2019-10-04 04:40] VITALS: BP 124/70
--- NOTE | 2019-10-04 05:30 | NUR ---
PT. ASSISTED WITH SHOWER AND LINENS CHANGED.
--- NOTE | 2019-10-04 06:50 | NUR ---
PT. C/O ABDOMINAL INCISION PAIN AND REQUESTS PROTONIX AND ZOFRAN PRIOR TO AM FEED; MEDICATED WITH ORDERED PROTONIX, ZOFRAN, AND MORPHINE; WILL REASSESS. DENIES FURTHER NEEDS.
--- NOTE | 2019-10-04 07:00 | NUR ---
REPORT RECEIVED FROM KARLIE KOROMA;PT APPEARS TO BE SLEEPING IN SEMI FOWLERS POSITION;NO S/S OF DISTRESS NOTED;RESPIRATIONS EVEN AND UNLABORED ON RA;IV FLUIDS INFUSING WITH EASE PER ORDER;TELE MONITORING IN PLACE;NPO DIET REINFORCED;ALL SAFETY PRECAUTIONS IN PLACE WITH BED IN THE LOWEST POSITION AND CALL LIGHT IN REACH;WILL CONTINUE TO MONITOR
[2019-10-04 07:34] VITALS: BP 118/68
--- NOTE | 2019-10-04 07:50 | NUR ---
TUBE FEEDING ADMINISTERED AT THIS TIME BY KARLIE CADENA.5CC OF RESIDUAL NOTED.PT TOLERATED WELL BUT DOES REPORT INCREASED BELCHING AFTER ADMINISTRATION.WILL CONTINUE TO MONITOR
--- NOTE | 2019-10-04 08:20 | NUR ---
PT RESTING IN SEMI FOWLERS POSITION,A&O X3;ASSESSMENT COMPLETED;PT DENIES ANY CURRENT PAIN OR DISCOMFORTS,PAIN SCALE AND REPORTING EDUCATED;RESPIRATIONS SHALLOW ON RA,DIMINISHED/CLEAR LUNG SOUNDS;ABDOMEN SOFT ON PALPATION AND ACTIVE IN ALL 4 QUADRANTS,PEG TUBE TO LEFT QUADRANTS NOTED AND CHECKED FOR PATENCY WITH 30CC OF AIR FOR ASCULTATION;STRONG PEDAL PULSES;SKIN INTACT;TELE MONITORING IN PLACE;ACCUCHECK 98, NO COVERAGE NEEDED;#22G TO LFA INFUSING D5 1/2 NS @ KVO PER ORDER WITH EASE;NPO DIET REINFORCED;PT DENIES ANY ADDITIONAL NEEDS AT THIS TIME AND IS ENCOURAGED TO CALL FOR ASSISTANCE IF NEEDED;CALL LIGHT IN REACH;WILL CONTINUE TO MONITOR
[2019-10-04 09:12] LABS: HEMATOCRIT 29.7 % (39.0-50.0); HEMOGLOBIN 9.8 g/dl (14.0-18.0); MEAN CELL VOLUME 94.3 fL CALC (80.0-100.0); MEAN CORPUSCULAR HGB 31.1 pG CALC (26.0-32.0); RED BLOOD COUNT 3.15 mill/uL (4.70-6.10)
[2019-10-04 09:26] LABS: ANION GAP 11 (6-22 (CALC)); BUN 9 mg/dL (8-23); BUN/CREATININE RATIO 12 (12-20 (CALC)); CARBON DIOXIDE 28 mmol/l (22-30); CHLORIDE 101 mmol/l (95-108); CREATININE 0.7 mg/dL (0.7-1.3); GFR > 60 ML/MIN (>=60 (CALC)); GFR FOR AFR.AMER. > 60 ML/MIN (>=60 (CALC)); SODIUM 137 mmol/l (137-146)
[2019-10-04 09:29] LABS: POTASSIUM 2.9 mmol/l (3.5-5.1)
--- NOTE | 2019-10-04 09:57 | NUR ---
AT BEDSIDE DISCUSSING POC.
[2019-10-04] MEDS ORDERED: AUGMENTIN400 MG/51 VT (10:11)
--- NOTE | 2019-10-04 10:11 | NUR ---
JOSÉPHYSICAL THERAPY WORKING WITH PTCharley
[2019-10-04 10:30] VITALS: BP 117/64
--- NOTE | 2019-10-04 11:40 | NUR ---
PT RESTING IN SEMI FOWLERS POSITION;RESPIRATIONS EVEN AND UNLABORED ON RA;PT DENIES ANY CURRENT PAIN OR DISCOMFORTS;IV SITE PATENT INFUSING IV FLUIDS WITH EASE AND ABX STARTED AT THIS TIME;TUBE FEEDING ADMINISTERED AND 5CC OF RESIDUAL OBTAINED PRIOR TO FEEDING, PT TOLERATED WELL;TELE MONITORING D/C AT THIS TIME;ALL DISCHARGE INFORMATION PROVIDED AND PT INSTRUCTED TO TAKE ABX DIRECTED,FEEDIINGS VIA TBE X4/DAY WITH 150CC FLUSH OF O2.CASE OF 2CAL TO BE PROVIDED FOR HOME D/C PER FLORECITA TAVARES;ACCUCHECK 125, NO COVERAGE NEEDED;PT DENIES ANY ADDITIONAL NEEDS AT THIS TIME;WHEELCHAIR TO BE PROVIDED FOR D/C HOME;AWAITING SPOUSE FOR TRANSPORTATION HOME;WILL CONTINUE TO MONITOR
--- NOTE | 2019-10-04 12:17 | NUR ---
PT HAD 1 LOOSE/[facility] BM AND [facility] PROVIDED;IV SITE REMOVED WITH CATHETER INTACT.
--- NOTE | 2019-10-04 13:29 | NUR ---
Discharge instructions given. Patient verbalizes understanding of same. Discharged in stable condition via Wheelchair to Home with spouse. All belongings sent with pt. PT TRANSPORTED TO [facility] IN STABLE CONDITION VIA WHEELCHAIR ACCOMPANIED BY LUKE AND KINJAL DO;PT SPOUSE TO TRANSPORT PT HOME.
--- NOTE | 2019-10-04 16:38 | NUR ---
PT note Patient is seen for functional assessment and gait. He is able to get OOB to stand with CGA of 1. He is also able to ambulate to RR and perform ADL independently. He did so with min assist of 1 and vitals stable using a FWW. He needs assistance with his gait and strengthening to decrease his fall risk. He would benefit from home health physical therapy. His Am Pac is 15 indicating he would do well with the above recommendation
== END 2019-10-04 13:29 | disposition home health service (06) | DRG 393 ==
LOC: ED 23:19 → ED-I 09-30 00:06 → ED 09-30 01:31 → MS2 09-30 01:32
PROVIDERS: Nurse Practitioner Family; ADMIT Internal Medicine; ATTEND Internal Medicine
PROC: 0DH63UZ Insertion of Feeding Device into Stomach, Percutaneous Approach (ICD-10-PCS; principal; 2019-10-01)
DX: K91.89 Other postprocedural complications and disorders of digestive system (principal); J69.0 Pneumonitis due to inhalation of food and vomit; E46 Unspecified protein-calorie malnutrition; Z68.1 Body mass index [BMI] 19.9 or less, adult; R13.10 Dysphagia, unspecified; E86.0 Dehydration; K29.70 Gastritis, unspecified, without bleeding; K44.9 Diaphragmatic hernia without obstruction or gangrene; I10 Essential (primary) hypertension; E11.9 Type 2 diabetes mellitus without complications; J44.9 Chronic obstructive pulmonary disease, unspecified; E87.6 Hypokalemia; I25.10 Atherosclerotic heart disease of native coronary artery without angina pectoris; N40.0 Benign prostatic hyperplasia without lower urinary tract symptoms; F10.10 Alcohol abuse, uncomplicated; E78.5 Hyperlipidemia, unspecified; M25.562 Pain in left knee; I25.2 Old myocardial infarction; Y83.8 Other surgical procedures as the cause of abnormal reaction of the patient, or of later complication, without mention of misadventure at the time of the procedure; Z87.891 Personal history of nicotine dependence; Z95.5 Presence of coronary angioplasty implant and graft; Z79.84 Long term (current) use of oral hypoglycemic drugs; Z98.1 Arthrodesis status
CPT/HCPCS: G0378; S0164

== ENCOUNTER 2019-10-07 | Emergency (ER) | payer OTHER, MEDICARE ==
[~2019-10-07] MED LIST changes: +AUGMENTIN400 MG/51 VT
== END 2019-10-07 19:09 | disposition home or self-care (01) | DRG 204 ==
DX: R05 Cough (principal); K21.9 Gastro-esophageal reflux disease without esophagitis; J44.9 Chronic obstructive pulmonary disease, unspecified; I10 Essential (primary) hypertension; I25.10 Atherosclerotic heart disease of native coronary artery without angina pectoris; E11.9 Type 2 diabetes mellitus without complications; Z93.1 Gastrostomy status; Z95.5 Presence of coronary angioplasty implant and graft; Z98.890 Other specified postprocedural states

== ENCOUNTER 2019-10-11 | Emergency (ER) | payer OTHER, MEDICARE ==
[2019-10-11 01:13] LABS: HEMOGLOBIN 11.1 g/dl (14.0-18.0); IMMATURE GRANULOCYTES 0.8 % (0.0-5.0); MEAN CORPUSCULAR HGB 31.4 pG CALC (26.0-32.0); MEAN CORPUSCULAR HGB CONC 32.6 g/dL CAL (32.0-36.0); NEUT# 5.61 thou/uL (1.82-7.42); RED BLOOD COUNT 3.54 mill/uL (4.70-6.10); RED CELL DISTRI WIDTH 14.3 % (11.5-15.5)
[2019-10-11 01:37] LABS: ALKALINE PHOSPHATASE 93 u/l (38-126); BUN 20 mg/dL (8-23); BUN/CREATININE RATIO 34 (12-20 (CALC)); CARBON DIOXIDE 28 mmol/l (22-30); CHLORIDE 103 mmol/l (95-108); CREATININE 0.6 mg/dL (0.7-1.3); GFR > 60 ML/MIN (>=60 (CALC)); GFR FOR AFR.AMER. > 60 ML/MIN (>=60 (CALC)); SGOT/AST 82 u/l (19-48); SODIUM 137 mmol/l (137-146); TOTAL PROTEIN 5.8 g/dL (6.3-8.2)
[2019-10-11 01:39] LABS: ANION GAP 10 (6-22 (CALC)); BILIRUBIN, TOTAL 0.6 mg/dL (0.0-1.4); POTASSIUM 4.3 mmol/l (3.5-5.1)
== END 2019-10-11 06:20 | disposition home or self-care (01) | DRG 395 ==
PROVIDERS: Family Medicine
DX: K94.29 Other complications of gastrostomy (principal); R13.10 Dysphagia, unspecified; I10 Essential (primary) hypertension; J44.9 Chronic obstructive pulmonary disease, unspecified; I25.2 Old myocardial infarction; Y83.3 Surgical operation with formation of external stoma as the cause of abnormal reaction of the patient, or of later complication, without mention of misadventure at the time of the procedure; Z95.5 Presence of coronary angioplasty implant and graft; Z98.890 Other specified postprocedural states

== ENCOUNTER 2019-10-12 16:21 | Observation (INO) | payer OTHER, MEDICARE ==
[~2019-10-12] VITALS: Ht 180.3 cm; Wt 58.0 kg
--- NOTE | 2019-10-12 16:21 | NUR ---
PT TO ROOM VIA EMS WITH C COLLAR IN PLACE
--- NOTE | 2019-10-12 17:20 | NUR ---
PT ASSISTED TO [facility] FOR BM
[2019-10-12 17:54] LABS: HEMATOCRIT 35.6 % (39.0-50.0); HEMOGLOBIN 11.5 g/dl (14.0-18.0); IMMATURE GRANULOCYTES 0.8 % (0.0-5.0); MEAN CELL VOLUME 96.5 fL CALC (80.0-100.0); MEAN CORPUSCULAR HGB 31.2 pG CALC (26.0-32.0); MEAN CORPUSCULAR HGB CONC 32.3 g/dL CAL (32.0-36.0); NEUT# 6.22 thou/uL (1.82-7.42); RED BLOOD COUNT 3.69 mill/uL (4.70-6.10); RED CELL DISTRI WIDTH 14.5 % (11.5-15.5)
--- NOTE | 2019-10-12 18:00 | NUR ---
PT RESTING ON STRETCHER; NO S/S OF DISTRESS NOTED;
[2019-10-12 18:16] LABS: ALBUMIN 3.5 g/dL (3.2-5.0); ALKALINE PHOSPHATASE 100 u/l (38-126); ANION GAP 9 (6-22 (CALC)); BILIRUBIN, TOTAL 0.5 mg/dL (0.0-1.4); BUN 23 mg/dL (8-23); BUN/CREATININE RATIO 32 (12-20 (CALC)); CARBON DIOXIDE 32 mmol/l (22-30); CHLORIDE 103 mmol/l (95-108); CREATININE 0.7 mg/dL (0.7-1.3); GFR > 60 ML/MIN (>=60 (CALC)); GFR FOR AFR.AMER. > 60 ML/MIN (>=60 (CALC)); LIPASE 153 u/l (23-300); POTASSIUM 4.3 mmol/l (3.5-5.1); SGOT/AST 76 u/l (19-48); SODIUM 140 mmol/l (137-146); TOTAL PROTEIN 6.7 g/dL (6.3-8.2)
[2019-10-12 18:47] LABS: TSH, 3RD GENERATION 1.27 uIU/mL (0.47 - 4.68)
--- NOTE | 2019-10-12 19:00 | NUR ---
IN ROOM INTRODUCED SELF TO PT. NO C/O.
--- NOTE | 2019-10-12 19:07 | NUR ---
REPORT TO KARLIE CONTRERAS
--- NOTE | 2019-10-12 19:48 | NUR ---
Admission Note Report Given to: SHARIF ZIEGLER Transported by: Wheelchair X Stretcher Transported with: X Nurse Transporter X Patent IV O2 Manager Reporting Location: ICU X MS2
--- NOTE | 2019-10-12 19:50 | NUR ---
PT. TAKEN TO MD FLOOR VIA STRETCHER, NO C/O.
[2019-10-12 20:05] VITALS: BP 129/71
--- NOTE | 2019-10-12 22:00 | NUR ---
PATIENT ADMITTED FROM ER VIA STRETCHER WITH ER STAFF IN ATTENDANCE. PATIENT WAS ABLE TO SLIDE ONTO THE BED FROM STRETCHER. PATIENT IS BEING ADMITTED FOR WEAKNESS SOB. PATIENT WAS SWABBED FOR COVID 19 AND BEING TREATED ON ISOLATION AND IN NEG PRESSURE ROOM. PATIENT WITH CERVICAL CALLAR IN PLACE. PATIENT STATES THAT HE HAD SEVERE FALL THE PART OF AUGUST AND WAS TAKEN TO [facility].FINALLY HAD SURGERY 1 WEEK LATER AND THEN DEVELOPED DYSPHAGIA. WAS THEN DISCHAGRGED HOME WITH NO REHAB. IS NOT ABLE TO TAKE CARE OF HIM AND HE CAN'T CARE FOR HIMSELF. PATIENT HAS PEG TUBE INTACT-PLACED BY DR. VALENTINE HERE AFTER BEING DISCHARGED FROM [facility]. ALSO SEES PCP AT THE [facility] IN PC. ALSO SEES DR. HESTER LOCALLY. STATES THAT HE IS SUPPOSED TO BE GOING TO REHAB AT [facility] 10/13/19. [id number] LARGE WEIGHT LOSE SINCE GETTING SICK. PATIENT TAKES HN 2CAL 1 CAN Q4H VIA PEG TUBE. NPO AT THIS TIME. SALOINE LOCK TO LEFT AC INTACT AND IVF NS HUNG AND INFUSING AT 30CC/HR. PATIENT VOIDED MIKE URINE IN URINAL AND SPEC SENT TO LAB. WEAR C-COLLAR MOST OF THE TIME. PRODUCTIVE COUGH-THICK AND WHITE. PATIENT ORIENTED TO ROOM AND SURROUNDINGS. INSTRUCTED ON USE OF NURSE CALL LIGHT SYSTEM, TV REMOTE AND TELEPHONE. REVIEWED SAFETY PRECAUTIONS WITH PATIENT. CALL LIGHT IN REACH. WILL CONT TO MONITOR.
[2019-10-12 23:42] LABS: URINE BILIRUBIN - DIPSTICK NEGATIVE (NEGATIVE); URINE BLOOD DIPSTICK TRACE-INTACT (NEGATIVE); URINE COLOR YELLOW; URINE GLUCOSE - DIPSTICK NEGATIVE (NEGATIVE); URINE KETONE NEGATIVE (NEGATIVE); URINE NITRITE - DIPSTICK NEGATIVE (Negative); URINE PH 8.5 (4.5-8.0); URINE PROTEIN - DIPSTICK NEGATIVE (NEG-TRACE); URINE UROBILINOGEN - DIPSTICK 0.2 E.U./dL (0.2)
[2019-10-12 23:44] LABS: URINE LEUK ESTERASE TRACE (NEGATIVE)
[2019-10-12 23:50] VITALS: BP 138/78
--- NOTE | 2019-10-13 00:32 | NUR ---
PATIENT SITTING UP IN THE BED AT THIS TIME-AWAKE ALERT AND ORIENTEDX3. TEMP 100.5-MEDICATED WITH TYLENOL 650MG VIA TUBE ORDERED FOR TEMP. PEG TUBE INTACT-PLACEMENT CHECKED WITH STETHOSCOPE AND NO RESIDUAL. JEVITY TUBE FEEDING 1 BOX GIVEN ORDERED WITH 50CC H2O FLUSH. IVF NS HUNG ORDERED VIA LEFT AC SITE-SITE IS HEALTHY AND IVF INFUSING AT 30CC/HR. PATIENT IS NPO- SOFT TOOTHETTES PROVIDED FOR ORAL HYGEINE. SAFETY PRECAUTIONS REINFORCED. CALL LIGHT IN REACH, WILL CONT TO MONITOR.
[2019-10-13 03:00] VITALS: BP 104/67
--- NOTE | 2019-10-13 04:07 | NUR ---
PATIENT COUGHING THICK WHITE SPUTUM AND STATES FEELING SOB. O2 SAT ON RA 93%. PATIENT PLACED ON O2 VIA NASAL CANNULA AT 2LPM. HOB ELEVATED AND PATIENT GIVEN JEVITY TUBE FEEDING ORDERED VIA PEG TUBE WITHOUT ANY DIFFICULTY. 50CC OF H2O GIVEN FOR FLUSH. PATIENT VERBALIZING CONCERNS REGUARDING DEIRDRE TO REHAB AND GEETING THE HELP HE NEEDS AT HOME. ALLOWED PATIENT TO VENT. TEMP IS DOWN-97.9. CERVICALCOLLAR IN PLACE. SAFETY PRECAUTIONS REINFORCED. CALL LIGHT IN REACH. WILL CONT TO MONITOR.
--- NOTE | 2019-10-13 07:20 | NUR ---
REPORT RECEIVED FROM KARLIE OLGUIN;PT RESTING IN SEMI FOWLERS POSITION;INTRODUCED SELF TO PT AND POC DISCUSSED;RESPIRATIONS EVEN AND UNLABORED ON O2 @ 2L VIA NC;PT DENIES ANY CURRENT PAIN OR NEEDS;IV FLUIDS INFUSING WITH EASE PER ORDER;PT ENCOURAGED TO CALL FOR ASSISTANCE IF NEEDED;FALL PRECAUTIONS IN PLACE WITH BED IN THE LOWEST POSITION AND CALL LGHT IN REACH;WILL CONTINUE TO MONITOR
--- NOTE | 2019-10-13 08:00 | NUR ---
PT RESTING IN SEMI FOWLERS POSITION,A&O X3;VS OBTAINED AND ASSESSMENT COMPLETED;PT DENIES ANY CURRENT PAIN OR DISCOMFORTS,PAIN SCALE AND REPORTING EDUCATED;RESPIRATIONS SHALLOW ON O2 @ 2L VIA NC,CLEAR LUNG SOUNDS;ABDOMEN SOFT ON PALPATION AND ACTIVE IN ALL 4 QUADRANTS;PEG TUBE CHECKED FOR PATENCY VIA ASCULATION;0 RESIDUAL NOTED AND FEEDING PROVIDED AT THIS [place],PT TOLERATED WELL;TELE MONITORING IN PLACE;#20G TO LAC INFUSING NS @ 30ML/HR,SITE APPEARS HEALTHY;ACCUCHECK 133;PT DENIES ANY ADDITIONAL NEEDS AT THIS TIME AND IS ENCOURAGED TO CALL FOR ASSISTANCE IF NEEDED;CALL LIGHT IN REACH;WILL CONTINUE
[2019-10-13 08:21] VITALS: BP 121/71
[2019-10-13 10:58] VITALS: BP 122/63
--- NOTE | 2019-10-13 12:15 | NUR ---
PT RESTING IN SEMI FOWLERS POSITION;RESPIRATIONS EVEN AND UNLABORED ON O2 @ 2L VIA NC;PT DENIES ANY CURRENT PAIN OR NEEDS;TELE MONITORING IN PLACE;TUBE FEEDING PROVIDED AT THIS TIME BY SUKHDEEP PEREZ AND PT TOLERATED WELL, 0 RESIDUAL NOTED;IV FLUIDS INFUSING WITH EASE;CALL LIGHT IN REACH;WILL CONTINUE TO MONITOR
--- NOTE | 2019-10-13 13:05 | NUR ---
PT note: Patient is seen for functional assessment and discharge recommendation. It is strongly recommended he get aggressive rehab for fall prevention, endurance and strengthening with cardiac precautions and ST for dysphagia He demonstrates LE and UE weakness, sensory deficits to the LE affecting his balance and poor endurance. Further, he is in a [place] collar limiting his cervical ROM and necessitating good balance. He has poor proprioception and therefore is a very high fall risk. Therapy intervention can help reduce his fall risk, help him gain independence and decrease his burden of care
--- NOTE | 2019-10-13 15:20 | NUR ---
PT RESTING IN SEMI FOWLERS POSITION;RESPIRATIONS EVEN AND UNLABORED ON O2 @ 2L VIA NC;PT DENIES ANY CURRENT NEEDS;TELE MONITORING IN PLACE;IV FLUIDS INFUSING WITH EASE PER ORDER;ALL SAFETY PRECAUTIONS IN PLACE WITH BED IN THE LOWEST POSITION AND CALL LIGHT IN REACH;WILL CONTINUE TO MONITOR
[2019-10-13 15:23] VITALS: BP 114/64
[2019-10-13 18:25] VITALS: BP 125/64
--- NOTE | 2019-10-13 18:50 | NUR ---
PT REPORTS SOB AND "CHOKING";PT FOUND SITTING IN BED,POSITIONED TO SIDE OF BED WITH 1 PERSON ASSIST;PT COUGHING (NON-PRODUCTIVE);O2 SATS CHECKED AND WNL,O2 APPLIED FOR COMFORT;PT DENIES ANY CURRENT PAIN AND AFTER A FEW MINS REPORT THAT HE IS OK AND FEELS BETTER;ENCOURAGED TO KEEP HOB ELEVATED AT ALL TIMES ASPIRATION PRECAUTIONS OR REQUIRED DUE TO PEG FEEDINS;PT VERBALIZES UNDERSTANDING AND IS ENCOURAGED TO CALL FOR ASSISTANCE IF NEEDED;CALL LIGHT IN REACH;WILL CONTINUE TO MONITOR
--- NOTE | 2019-10-13 20:20 | NUR ---
PT RESTING IN BED, NO SIGNS OF DISTRESS NOTED, RESP EVEN AND UNLABORED. PT ALERT AND ORIENTED X3, DISCUSSED POC AND FEED, PT REFUSED FEED AT THIS TIME. CHECKED PLACEMENT OF PEG TUBE, NO RESIDUAL AT THIS TIME. MEDICATED VIA TUBE. ASSESSMENT COMPLETED, CALL LIGHT IN REACH,CONTINUE TO MONITOR.
[2019-10-13 23:15] VITALS: BP 126/55
--- NOTE | 2019-10-13 23:15 | NUR ---
PT MEDICATED FOR PAIN AND FEVER.CALL LIGHT IN REACH,CONTINUE TO MONITOR.
--- NOTE | 2019-10-14 00:20 | NUR ---
PT RESTING IN BED, DISCUSSED FEED, PT AGREED. NO RESIDUAL AT THIS TIME. PT GIVEN JEVITY 1 CAN. TOLERATED WELL. DISCUSSED START OF ZOSYN PT AGREED. CALL LIGHT IN REACH,CONTINUE TO MONITOR.
--- NOTE | 2019-10-14 04:00 | NUR ---
PT RESTING IN BED, BOLUS FEED DUE AT THIS TIME, NO RESIDUAL, MEDICATED WITH ROBITUSSIN. PT VOICES NO NEEDS OR COMPLAINTS AT THIS TIME, CALL LIGHT IN REACH,CONTINUE TO MONITOR.
[2019-10-14 04:02] VITALS: BP 104/55
[2019-10-14 07:50] VITALS: BP 113/69
--- NOTE | 2019-10-14 07:50 | NUR ---
ASSESSMENT IS COMPLETED: IV SITE IS FREE FROM REDNESS OR EDEMA. HR IS RE,GPULSES ARE STRONG X4, ABD IS SOFT WITH ACTIVE BS. BREATH SOUNDS ARE CLEAR AND DIMINISHED.TELE MONITRO IN PLACE. PEG TUBE DRESSING IS CDI. FLUSHES WELL WITH NO RESIDUAL.
--- NOTE | 2019-10-14 10:38 | NUR ---
SPOKE WITH SPOUSE RE: PT AND WHAT WAS GOING ON . PT IS TELLING FAMILY THAT HE HAS PNEUMONIA AND POSITIVE FOR THE FLU. EXPLAINED THAT HE IS NEGATIVE FOR THE FLU. HE TENDS TO PUT HIS HEAD DOWN AND THEN FEELS LIKE EVERYTHING IS COMING BACK INTO HIS THROAT. CONTINUE TO OSBERVE AND MONITOR.
[2019-10-14 11:05] VITALS: BP 112/58
--- NOTE | 2019-10-14 12:06 | NUR ---
PT TOLERATED TUBE FEEDING WELL/
--- NOTE | 2019-10-14 12:45 | NUR ---
PT IS RELAXING IN BED WITH NO DISTRESS NOTED. IV SITE IS FREE FROM REDNESS OR EDEMA.
[2019-10-14 15:25] VITALS: BP 108/60
[2019-10-14 19:50] VITALS: BP 119/60
--- NOTE | 2019-10-14 19:58 | NUR ---
PT LAYING IN BED WATCHING TV. A&O X3. NO DISTRESS NOTED. PT C/O A LITTLE BIT OF THROAT DISCOMFORT AND SOME HOARSNESS NOTED TO VOICE. PER PT HE WAS COUGHING A LOT LAST NIGHT AND HIS VOICE STARTED GOING AWAY A FEW HOURS AGO, DENIED ANY SOB OR DIFFICULTY SWALLOWING. EXPLAINED TO PT THAT IS DEVICE WOULD BE BROUGHT TO BEDSIDE AND WOULD BE INSTRUCTED ON HOW TO PROPERLY USE DEVICE. INSTRUCTIONS GIVEN TO PRESS CALL LIGHT IF ONSET OF SOB OR DIFFICULTY SWALLOWING BEGAN. PT VERBALIZED UNDERSTANDING. NO OTHER NEEDS AT THIS TIME. ASSESSMENT COMPLETED. DISCUSSED POC. CALL LIGHT IN REACH. CONTINUE TO MONITOR.
--- NOTE | 2019-10-14 22:00 | NUR ---
PT REFUSED NIGHT TIME FEEDING
[2019-10-15] VITALS (7 sets, daily range): BP systolic 106–125; BP diastolic 58–69
--- NOTE | 2019-10-15 00:06 | NUR ---
PT SLEEPING IN BED. RESP EVEN AND UNLABORED. CONTINUE TO MONITOR
--- NOTE | 2019-10-15 04:05 | NUR ---
PT REFUSED MORNING FEEDING
--- NOTE | 2019-10-15 04:29 | NUR ---
PT SLEEPING IN BED, RESP EVEN AND UNLABORED. AWAKENED TO ADMINISTER TYLENOL DUE TO TEMP OF 101.1. AC TURNED ON AND BLANKETS REMOVED. EXPLAINED REASONING BEHIND INTERVENTIONS, PT VERBALIZED UNDERSTANDING. WILL REASSES
--- NOTE | 2019-10-15 08:30 | NUR ---
ASSESSMENT IS COMPLETED: IV SITE IS FREE FROM REDNESS OR EDEMA. HR IS REG,PULSES ARE STRONG X4,A BD IS SOFT WITH ACTIVE BS. FEEDING TUBE IN PLACE.
[2019-10-15 09:01] LABS: IMMATURE GRANULOCYTES 0.7 % (0.0-5.0); MEAN CELL VOLUME 96.6 fL CALC (80.0-100.0); MEAN CORPUSCULAR HGB 31.1 pG CALC (26.0-32.0); MEAN CORPUSCULAR HGB CONC 32.2 g/dL CAL (32.0-36.0); NEUT# 7.28 thou/uL (1.82-7.42); RED BLOOD COUNT 2.96 mill/uL (4.70-6.10); RED CELL DISTRI WIDTH 14.8 % (11.5-15.5)
[2019-10-15 09:35] LABS: HEMATOCRIT 28.6 % (39.0-50.0); HEMOGLOBIN 9.2 g/dl (14.0-18.0)
--- NOTE | 2019-10-15 10:30 | NUR ---
RECEIVED A CALL FROM HIS INQUIRING HOW HER IS TODAY. EXPLAINED ABOUT HAVING A HARD TIME WITH SPEAKING DUE TO HAVING OT AND SPEECH THERAPY COME AND SEE HIM ON FRIDAY. CONTINUE TO OSBERVE AND MONITOR.
[2019-10-15 10:50] LABS: ALKALINE PHOSPHATASE 81 u/l (38-126); ANION GAP 9 (6-22 (CALC)); BUN 14 mg/dL (8-23); BUN/CREATININE RATIO 23 (12-20 (CALC)); CARBON DIOXIDE 30 mmol/l (22-30); CHLORIDE 103 mmol/l (95-108); CREATININE 0.6 mg/dL (0.7-1.3); GFR > 60 ML/MIN (>=60 (CALC)); GFR FOR AFR.AMER. > 60 ML/MIN (>=60 (CALC)); POTASSIUM 3.5 mmol/l (3.5-5.1); SGOT/AST 26 u/l (19-48); SODIUM 139 mmol/l (137-146)
[2019-10-15 10:53] LABS: ALBUMIN 2.5 g/dL (3.2-5.0); BILIRUBIN, TOTAL 0.9 mg/dL (0.0-1.4); TOTAL PROTEIN 5.1 g/dL (6.3-8.2)
--- NOTE | 2019-10-15 11:52 | NUR ---
10/14/19 Patient is seen for gait training as before. He is mod assist to ambulate in the room but does so with a FWW and vitals stable. He has a raspy voice now and is limited by dypsnea and weakness. His Am Pac is unchanged and it is strongly recommended he go to rehab for follow up care. Functionally he is able to ambulate in room only on a level surface limited by weakness and dyspnea
--- NOTE | 2019-10-15 11:54 | NUR ---
PT Note Today the patient had increased redness and tenderness of the right tibial tuberosity. When asked, he tells me he fell before he was admitted. He did not have point tendxerness and loss of ROM prior to this. I informed nursing. His Am Pac is basically unchanged and he would benefit from ECF
--- NOTE | 2019-10-15 12:00 | NUR ---
PT IS RELAXING IN BED NOT WANTING TO BE FED AT THIS TIME. CONTINUE TO OSEBRVE AND MONITOR.
--- NOTE | 2019-10-15 15:45 | NUR ---
PT TRANSPORTED TO HAVE CT OF THE CHEST COMPLETRED VIA WC. RETURNED AT 1612 VIA WC
--- NOTE | 2019-10-15 16:00 | NUR ---
PT REFUSED TO BE FED AT THIS TIME. WANTS TO WAIT UNTIL 1800 TO BE FED.
--- NOTE | 2019-10-15 16:00 | NUR ---
PT REQUEST TO BE FED AROUND 6PM NOT NOW. FEELS FULL. IV SITE IS FREE FROM REDNESS OR EDEMA. NOTE. CONTINUE TO OBSERVE AND MONITOR.
--- NOTE | 2019-10-15 16:25 | NUR ---
SPOKE WITH PTS SISTER INQUIRED ABOUT HOW PT IS DOING AND HOPEFULLY HE WILL FEEL BETTER SOON , EXPLAINED ABOUT THE FEVERS. AND WHEN IT IS RESOLVED THEN MORE CAN BE DONE. WILL CALL AGAIN TO GET AN UPDATE.
--- NOTE | 2019-10-15 20:36 | NUR ---
PT SITTING IN BED WATCHING TV. A&O X3. NO DISTRESS NOTED. PT STATES THAT HIS VOICE IS SLOWLY RETURNING BACK TO NORMAL. ENCOURAGED PT TO REST HIS VOICE, PT VERBALIZED UNDERSTANDING. NO OTHER NEEDS AT THIS TIME. ASSESSMENT COMPLETED. DISCUSSED POC. CALL LIGHT IN REACH. CONTINUE TO MONITOR.
--- NOTE | 2019-10-15 20:57 | NUR ---
DR HOUSER CONTACTED IN REGARDS TO PATIENTS BLOOD SUGAR LEVEL, NO ANSWER. VOICEMAIL LEFT
--- NOTE | 2019-10-15 21:00 | NUR ---
DR HOUSER NOTIFIED ABOUT PTS BLOOD SUGAR OF 317. PER DR HOUSER, START THE PT ON A LOW DOSE SLIDING SCALE AND MONITOR THE BLOOD SUGAR BEFORE EACH FEEDING (Q4 ACCORDING TO ORDERS)
--- NOTE | 2019-10-15 22:00 | NUR ---
PT REFUSED 10 PM FEEDING. EXPLAINED TO THE PT THE IMPORTANCE OF HIS NUTRITIONAL INTAKE/FEEDINGS, BUT PER PT " I AM FULL, NOT HUNGRY AT THIS TIME"
--- NOTE | 2019-10-15 22:45 | NUR ---
DRESSING CHANGE DONE TO BUTTOCKS TO PREVENT ANY SKIN TEARS OR DAMAGE. PT TOLERATED WELL.
--- NOTE | 2019-10-15 23:28 | NUR ---
PER PT HE FEELS LIKE HE HAS A FEVER, TEMP TAKEN. TEMP 98.8. EXPLAINED TO PT THAT HE DID NOT HAVE A FEVER, EXTRA SHEETS AND PILLOWS TAKEN AWAY TO MAKE THE BED LESS HOT AND TO HELP THE PT WITH THE BACK SWEAT. INSTRUCTED THE PT TO CALL ME IF INTERVENTIONS DID NOT HELP OR IF ROOM SEEMED TO GET HOTTER.
--- NOTE | 2019-10-16 01:59 | NUR ---
PT AGREED TO TAKE FEEDING. PT SAT IN A HIGH FOWLERS POSITION GIVING THE FEEDING SLOWLY. PT TOLERATED WELL. NO OTHER NEEDS AT THIS TIME. CONTINUE TO MONITOR.
[2019-10-16 03:45] VITALS: BP 122/47
--- NOTE | 2019-10-16 06:00 | NUR ---
PT ACCEPTED FEEDING. PT TOLERATED WELL.
[2019-10-16 08:25] VITALS: BP 122/64
--- NOTE | 2019-10-16 08:25 | NUR ---
ASSESSMEN TIS COMPLETED: IV SITE IS FREE FROM REDNESS ORE SHERIN. HR IS REG,PULSES ARE STRONG X4, ABD IS SOFT WITH ACTIVE BS, BREATH SOUNDS ARE CLEAR AND DIMINISHED. TELE MONITOR IN PLACE. CONTINUE TO OSBERVE AND MONITOR.
--- NOTE | 2019-10-16 10:30 | NUR ---
FAMILY CALLED AND INQUIRED ABOUT PT. INFORMED OF NO FEVER FOR 24 HRS.
[2019-10-16 11:02] VITALS: BP 126/62
--- NOTE | 2019-10-16 12:30 | NUR ---
PT IS RELAXING IN BED WITH NO DISTRESS NOTED. IV SITE IS FREE FROM REDNESS OR EDEMA.
--- NOTE | 2019-10-16 14:31 | NUR ---
PT REFUSES HIS 1430 FEED. WILL LET US KNOW WHEN HE IS READY TO EAT AGAIN.
--- NOTE | 2019-10-16 15:43 | NUR ---
PT WANTING TO BE FED.
[2019-10-16 16:03] VITALS: BP 150/71
--- NOTE | 2019-10-16 16:15 | NUR ---
PT IS RELAXING IN BED WITH NO DISTRESS NOTED. IV SITE IS FREE FROM REDNESS OR EDEMA.
--- NOTE | 2019-10-16 16:55 | NUR ---
PT HAD A COUGHING SPELL. SWALLOWED SOME SALIVA AND STARTED TO COUGH.
--- NOTE | 2019-10-16 17:19 | NUR ---
SPOKE WITH SPOUSE. RE: PT SHE WANT US TO ENCOURAGE PT TO EAT. CONTINUE TO OBSERVE AND MONITOR.
[2019-10-16 18:50] VITALS: BP 147/68
--- NOTE | 2019-10-16 19:08 | NUR ---
REPORT RECEIVED FROM SUKHDEEP HOOD. PT RESTING IN BED. NO S/S OF DISTRESS AT THIS TIME. SAFETY PRECAUTIONS IN PLACE. WILL CONTINUE TO MONITOR.
--- NOTE | 2019-10-16 20:55 | NUR ---
PT RESTING IN BED, ALERT AND ORIENTED. RESPIRATIONS EVEN AND UNLABORED ON O2 @ 2L VIA NC. LUNGS SOUND CLEAR DIMINISHED. PEDAL PULSES WEAK. PEG TUBE PLACEMENT ASSESSED, JEVITY GIVEN VIA BOLUS FOLLOWED BY 50 CC WATER FLUSH. PT TOLERATED WELL. PT DENIES ANY PAIN OR DISCOMFORT AT THIS TIME. SAFETY PRECAUTIONS IN PLACE. WILL CONTINEU TO MONITOR.
--- NOTE | 2019-10-16 21:09 | NUR ---
PT RESTING IN BED, ALERT AND ORIENTED. RESPIRATIONS EVEN AND UNLABORED ON O2 @ 2L VIA NC. LUNGS SOUND DIMINISHED. PEDAL PULSES WEAK. PT DENIES ANY PAIN OR DISCOMFORT AT THIS TIME. SAFETY PRECAUTIONS IN PLACE. WILL CONTINUE TO MONITOR.
[2019-10-17] VITALS (7 sets, daily range): BP systolic 121–166; BP diastolic 58–74
--- NOTE | 2019-10-17 01:23 | NUR ---
PT RESTING IN BED ALERT AND ORIENTED. PEG TUBE PLACEMENT ASSESSED, NO RESIDUAL NOTED AT THIS TIME, I CAN OF JEVITY VIA BOLUS FOLLOWED BY 50CC WATER FLUSH. PT TOLERATED WELL. SAFETY PRECAUTIONS IN PLACE. WILL CONTINUE TO MONITOR.
--- NOTE | 2019-10-17 04:19 | NUR ---
PT RESTING IN BED. RESPIRATIONS EVEN AND UNLABORED ON S/S OF DISTRESS AT THIS TIME. SAFETY PRECAUTIONS IN PLACE. WILL CONTINUE TO MONITOR.
[2019-10-17 05:12] LABS: HEMOGLOBIN 9.4 g/dl (14.0-18.0); IMMATURE GRANULOCYTES 0.8 % (0.0-5.0); MEAN CELL VOLUME 94.8 fL CALC (80.0-100.0); MEAN CORPUSCULAR HGB 30.7 pG CALC (26.0-32.0); MEAN CORPUSCULAR HGB CONC 32.4 g/dL CAL (32.0-36.0); NEUT# 9.93 thou/uL (1.82-7.42); RED BLOOD COUNT 3.06 mill/uL (4.70-6.10); RED CELL DISTRI WIDTH 14.3 % (11.5-15.5)
[2019-10-17 05:25] LABS: ALBUMIN 2.6 g/dL (3.2-5.0); ALKALINE PHOSPHATASE 83 u/l (38-126); ANION GAP 9 (6-22 (CALC)); BUN 18 mg/dL (8-23); BUN/CREATININE RATIO 33 (12-20 (CALC)); CARBON DIOXIDE 28 mmol/l (22-30); CHLORIDE 106 mmol/l (95-108); CREATININE 0.5 mg/dL (0.7-1.3); GFR > 60 ML/MIN (>=60 (CALC)); GFR FOR AFR.AMER. > 60 ML/MIN (>=60 (CALC)); POTASSIUM 3.2 mmol/l (3.5-5.1); SGOT/AST 42 u/l (19-48); SODIUM 140 mmol/l (137-146); TOTAL PROTEIN 5.2 g/dL (6.3-8.2)
[2019-10-17 05:31] LABS: BILIRUBIN, TOTAL 0.3 mg/dL (0.0-1.4)
--- NOTE | 2019-10-17 09:00 | NUR ---
MORNING MEDS CRUSHED AND PLACED IN PEG TUBE. PT WANTED TO WAIT ON FEEDING. PT IS AWAKE, ALERT, INTERACTIVE ON PHONE, NO ACUTE DISTRESS NOTED.
--- NOTE | 2019-10-17 12:30 | NUR ---
PT PROVIDED JEVITY FEEDING AND POTASSIUM SUPPLEMENT VIA PEG TUBE THIS MORNING, NO COUGH HEARD. PT TO SHOWER THIS AFTERNOON.
--- NOTE | 2019-10-17 18:18 | NUR ---
PT IS INDICATING WHEN HE WOULD LIKE ANOTHER FEEDING, CLAIMS THAT OTHERWISE HE GETS TOO FILLED UP. FOAM DRESSING APPLIED TO COCCYX PER REDNESS.
--- NOTE | 2019-10-17 19:08 | NUR ---
REPORT RECEIVED FROM KARLIE GILLESPIE. PT RESTING IN BED, NO S/S OF DISTRESS AT THIS TIME. SAFETY PRECAUTIONS IN PLACE. WILL CONTINUE TO MONITOR.
[2019-10-18] VITALS (7 sets, daily range): BP systolic 119–154; BP diastolic 64–78
--- NOTE | 2019-10-18 00:50 | NUR ---
PT RESTING IN BED, RESPIRATIONS EVEN AND UNLABORED. NO S/S OF DISTRESS AT THIS TIME. SAFETY PRECAUTIONS IN PLACE. WILL CONTINUE TO MONITOR.
--- NOTE | 2019-10-18 04:39 | NUR ---
PT RESTING IN BED, NO S/S OF DISTRESS AT THIS TIME. TELE IN PLACE. WILL CONTINUE TO MONITOR.
[2019-10-18 05:19] LABS: ANION GAP 8 (6-22 (CALC)); BUN 16 mg/dL (8-23); BUN/CREATININE RATIO 29 (12-20 (CALC)); CARBON DIOXIDE 29 mmol/l (22-30); CHLORIDE 107 mmol/l (95-108); CREATININE 0.6 mg/dL (0.7-1.3); GFR > 60 ML/MIN (>=60 (CALC)); GFR FOR AFR.AMER. > 60 ML/MIN (>=60 (CALC)); POTASSIUM 3.4 mmol/l (3.5-5.1); SODIUM 140 mmol/l (137-146)
--- NOTE | 2019-10-18 07:45 | NUR ---
ASSESSMENT IS COMPLETED: IV SITE IS FREE FROM REDNESS OR EDEMA. HR IS REG,PULSES ARE STRONG X4, ABD IS SOFT WITH ACTIVE BS. BREATH SOUNDS ARE CLEAR BILATERALLY. TELE MONITOR IN PLACE. CONTINUE TO OSBERVE AND MONITOR.
[2019-10-18] MEDS ORDERED: MEDDOSEPAK PO (10:44)
[2019-10-18] MEDS ORDERED: AUGMENTIN400 MG/5 M PO (10:44)
[2019-10-18] MEDS ORDERED: ZYLOPRIM100 MG PO (10:44)
[2019-10-18] MEDS ORDERED: TRAMADOL HCL50 MG PO (10:44)
[2019-10-18] MEDS ORDERED: NOVOLOG100 UNIT/M SC (10:44)
--- NOTE | 2019-10-18 12:30 | NUR ---
PT IS RELAXING IN BED WITH NO DISTRESS NOTED. IV SITE IS FREE FROM REDNESS OR EDEMA.
--- NOTE | 2019-10-18 13:30 | NUR ---
REFUSED HIS 1330 FEED. INFORMED OF TRYING TO SEND TO [facility] FOR REHAB. NOT WANTING TO GO TOO FAR FOR HIS . ASKED TO SPEAK WITH CASE MANAGEMENT.
--- NOTE | 2019-10-18 16:15 | NUR ---
PT IS RELAXING IN BED WITH NO DISTRESS NOTED. IV SITE IS FREE FROM REDNESS OR EDEMA. CONTIUE TO OBSERVE AND MONITOR.
--- NOTE | 2019-10-18 16:27 | NUR ---
REPORT RECEIVED FROM SUKHDEEP PEREZ;PT RESTING IN SEMI FOWLERS POSITION;INTRODUCED SELF TO PT AND POC DISCUSSED;RESPIRATIONS EVEN AND UNLABORED ON RA;PT DENIES ANY CURRENT PAIN OR NEEDS;TELE MONITORING IN PLACE;IV FLUIDS INFUSING WITH EASE PER ORDER;PT ENCOURAGED TO CALL FOR ASSISTANCE IF NEEDED;FALL PRECAUTIONS IN PLACE WITH BED IN THE LOWEST POSITION AND CALL LIGHT IN REACH;WILL CONTINUE TO MONITOR
--- NOTE | 2019-10-18 16:30 | NUR ---
PT note Patient seems in good spirits - looking forward to rehab He has noted atrophy of the bilateral LEs and it appears left is worse than the right although the gout in his knee has caused some difficulty with the right and continues to do so with amb. He is able to ambulate about 80 feet with FWW on a level surface with vitals stable. He requires min assist of 1. Am Pac score is 16 and he is progressing nicely. He is an excellent rehab candidate and should do well
--- NOTE | 2019-10-18 19:50 | NUR ---
PT SITTING IN BED. A&O X3. NO DISTRESS NOTED. NO HOARSENESS IN VOICE NOTED. PT REPORTS TO BE FEELING BETTER AND STATES THAT HE DOES NOT WANT TO TAKE THE PAIN MEDICATION. PER PT HE HAS BEEN ACCEPTING THE FEEDINGS BETTER.EXPLAINED TO THE PT THE IMPORTANCE OF REHAB, PT VERBALIZED UNDERSTANDING. NO OTHER NEEDS AT THIS TIME. ASSESSMENT COMPLETED. CALL LIGHT IN REACH. CONTINUE TO MONITOR.
--- NOTE | 2019-10-18 22:00 | NUR ---
PT ACCEPTED FEEDING, NO RISIDUAL NOTED. PT TOLERATED WELL
--- NOTE | 2019-10-18 23:06 | NUR ---
PT C/O OF SOME SLIGHT SOB. INHALER GIVEN, AND O2 VIA NC @2L PLACED. PT REPORTS SOME RELIEF. INSTRUCTED PT TO CONCENTRATE ON BREATHING AND SLOWING HIS RATE. CALL LIGHT IN REACH. CONTINUE TO MONITOR.
--- NOTE | 2019-10-19 00:44 | NUR ---
ASSISTED PT TO THE BATHROOM, STEADY GAIT OBSERVED
--- NOTE | 2019-10-19 02:10 | NUR ---
PT ACCEPTED 2 AM FEED. NO RISIDUAL. PT TOLERATED WELL. CALL LIGHT IN REACH. CONTINUE TO MONITOR.
[2019-10-19 03:38] VITALS: BP 132/52
[2019-10-19 05:10] LABS: HEMATOCRIT 31.1 % (39.0-50.0); HEMOGLOBIN 10.1 g/dl (14.0-18.0); IMMATURE GRANULOCYTES 1.1 % (0.0-5.0); MEAN CELL VOLUME 94.8 fL CALC (80.0-100.0); MEAN CORPUSCULAR HGB 30.8 pG CALC (26.0-32.0); MEAN CORPUSCULAR HGB CONC 32.5 g/dL CAL (32.0-36.0); NEUT# 5.66 thou/uL (1.82-7.42); RED BLOOD COUNT 3.28 mill/uL (4.70-6.10); RED CELL DISTRI WIDTH 14.6 % (11.5-15.5)
[2019-10-19 05:32] LABS: ANION GAP 7 (6-22 (CALC)); BUN 18 mg/dL (8-23); BUN/CREATININE RATIO 35 (12-20 (CALC)); CARBON DIOXIDE 29 mmol/l (22-30); CHLORIDE 107 mmol/l (95-108); CREATININE 0.5 mg/dL (0.7-1.3); GFR > 60 ML/MIN (>=60 (CALC)); GFR FOR AFR.AMER. > 60 ML/MIN (>=60 (CALC)); POTASSIUM 3.3 mmol/l (3.5-5.1); SODIUM 140 mmol/l (137-146)
--- NOTE | 2019-10-19 06:00 | NUR ---
PT REFUSED 0600 FEEDING.
[2019-10-19 07:45] VITALS: BP 130/73
--- NOTE | 2019-10-19 07:45 | NUR ---
ASSESSMENT IS COMPLETED: IV SITE IS FREE FROM REDNESS OR EDEMA. HR IS REG, PULSES ARE STRONG X4, ABD IS SOFT WITH ACTIVE BS. BREATH SOUNDS ARE CLEAR BILATERALLY. PEG TUBE IN PLACE. NO RESIDUAL. PT REFUSED 6AM FEEDING. WANTED AT 0730. WITH MEDICATIONS.
[2019-10-19 10:45] VITALS: BP 154/73
--- NOTE | 2019-10-19 12:15 | NUR ---
PT IS RELAXING IN BED WITH NO DISTRESS NOTED. TOOK A SHOWER AND SHAVED TO GET READY FOR TRANSPORT.
--- NOTE | 2019-10-19 14:37 | NUR ---
LEFT A MESSAGE FOR THE TO INFORM OF PT BEING PICKED UP ONBETWEEN 1630 AND 1700
[2019-10-19 15:25] VITALS: BP 144/71
--- NOTE | 2019-10-19 15:34 | NUR ---
PT note Patient prepping for DC . He received theraband for UE and LE exercises with a copy of his HEP. He demonstrates understanding of beed for continued amband exericses including quad sets and bridging. HE is min assist with transitional movement and ambulation on a level surface
--- NOTE | 2019-10-19 15:36 | NUR ---
SPOKE WITH PT'S . INFORMED OF BEING TRANSPORTED TO [facility] AT 1630 OR 1700. WILL FEED PRIOR TO LEAVING., ALSO INQUIRED ABOUT A COVERING FOR HIS BOTTOM. WILL REDRESS THE BOTTOM. INQUIRING ABOUT A "[employer]ANKAUR AND SPECIAL MATTRESS FOR HOME" EXPLAINED ABOUT NEEDING TO SPEAK WITH HIS PCP RE: SCRIPTS/ VERBALIZED UNDERSTANDING.
--- NOTE | 2019-10-19 16:00 | NUR ---
CHECKED PT BOTTOM ON THE R SIDE INNER BUTTOCK HAS WHAT LOOKS LIKE A SCRATCH. NO OPEN AREA. PLACED A DUODERM ON THE AREA , PT STATES" IT IS SORE," SOME DISCOLORATION AROUND THE COCCYX AREA NO BREAKDOWN. GAVE MEDICATION FEED REQUESTED BY PT.
--- NOTE | 2019-10-19 16:02 | NUR ---
RECEIVED A CALL FROM [facility]WILL CENTERLESS GRINDER SET UP OPERATOR PT INBETWEEN. 1730 AND 1800. SPOKE WITH PTS WHILE IN THE ROOM PRIOR TO FEEDING . NEEDED A PHONE CALL WROTE DOWN FOR PT TO FIX WITH THE BANK. CONTINUE TO OBSERVE AND MONITOR.
--- NOTE | 2019-10-19 16:30 | NUR ---
PT IS BEING DISCHARGED WAITING FOR THE TRANSPORTATION NO DISTRESS NOTED. IV SITE IS FREE FROM REDNESS OR EDEMA. CONTINUE TO OBSERVE AND MONITOR.
--- NOTE | 2019-10-19 17:14 | NUR ---
IV SITE DISCONTINEUD GETTING READY FOR DISCHARGE. CATHETER INTACT.
--- NOTE | 2019-10-19 19:04 | NUR ---
CALLED AND GAVE REPORT TO MINDA AND VITOR ZIEGLER. ALL DISCHARGE PAPERS WITH [facility]. Discharge instructions given. Patient verbalizes understanding of same. Discharged in stable condition via Medical Transport to *Other with *Other. All belongings sent with pt.
--- NOTE | 2019-10-19 19:25 | NUR ---
PT LEFT THE MIXER FOAM RUBBER AND INFORMED HIS . ALSO INFORMED [facility]PITAL. RE: R BUTTOCK AND DRESSING.
== END 2019-10-19 18:42 | DRG 179 ==
LOC: ED 16:21 → ED-I 18:50 → ED 19:14 → MS2 19:15
PROVIDERS: Family Medicine; Nurse Practitioner Family; ADMIT Internal Medicine; ATTEND Internal Medicine
DX: J69.0 Pneumonitis due to inhalation of food and vomit (principal); R53.1 Weakness; E86.0 Dehydration; R13.10 Dysphagia, unspecified; J44.9 Chronic obstructive pulmonary disease, unspecified; I10 Essential (primary) hypertension; I25.10 Atherosclerotic heart disease of native coronary artery without angina pectoris; E87.6 Hypokalemia; E78.5 Hyperlipidemia, unspecified; G89.29 Other chronic pain; M10.09 Idiopathic gout, multiple sites; I25.2 Old myocardial infarction; Z95.5 Presence of coronary angioplasty implant and graft; Z87.891 Personal history of nicotine dependence; Z98.1 Arthrodesis status; Z93.1 Gastrostomy status; Z20.828 Contact with and (suspected) exposure to other viral communicable diseases
CPT/HCPCS: G0378; J1650

== ENCOUNTER 2019-11-18 11:51 | Emergency (ER) | payer OTHER, MEDICARE ==
[~2019-11-18 11:51] MED LIST changes: +AUGMENTIN400 MG/5 M PO; +NOVOLOG100 UNIT/M SC; +ZYLOPRIM100 MG PO
[2019-11-18] MEDS ORDERED: FLEXERIL PO (13:23)
[2019-11-18] MEDS ORDERED: ULTRAM50 M1 PO (13:23)
[2019-11-18 13:26] VITALS: BP 112/66
== END 2019-11-18 13:35 | disposition home or self-care (01) | DRG 552 ==
LOC: ED 11:51
DX: S13.9XXA Sprain of joints and ligaments of unspecified parts of neck, initial encounter (principal); E11.9 Type 2 diabetes mellitus without complications; I10 Essential (primary) hypertension; J44.9 Chronic obstructive pulmonary disease, unspecified; I25.2 Old myocardial infarction; X50.0XXA Overexertion from strenuous movement or load, initial encounter; Y93.89 Activity, other specified; Y92.003 Bedroom of unspecified non-institutional (private) residence as the place of occurrence of the external cause; Z95.5 Presence of coronary angioplasty implant and graft; Z79.84 Long term (current) use of oral hypoglycemic drugs; Z98.890 Other specified postprocedural states

== ENCOUNTER 2019-11-20 17:31 | Emergency (ER) | payer OTHER, MEDICARE ==
[~2019-11-20 17:31] MED LIST changes: +FLEXERIL PO; +ULTRAM50 M1 PO
[2019-11-20 18:43] LABS: HEMATOCRIT 34.5 % (39.0-50.0); HEMOGLOBIN 11.1 g/dl (14.0-18.0); IMMATURE GRANULOCYTES 0.5 % (0.0-5.0); MEAN CORPUSCULAR HGB 30.2 pG CALC (26.0-32.0); MEAN CORPUSCULAR HGB CONC 32.2 g/dL CAL (32.0-36.0); NEUT# 7.64 thou/uL (1.82-7.42); RED BLOOD COUNT 3.67 mill/uL (4.70-6.10); RED CELL DISTRI WIDTH 15.2 % (11.5-15.5)
[2019-11-20 19:02] LABS: ALBUMIN 3.1 g/dL (3.2-5.0); ALKALINE PHOSPHATASE 80 u/l (38-126); ANION GAP 12 (6-22 (CALC)); BUN 14 mg/dL (8-23); BUN/CREATININE RATIO 23 (12-20 (CALC)); CARBON DIOXIDE 27 mmol/l (22-30); CHLORIDE 95 mmol/l (95-108); CREATININE 0.6 mg/dL (0.7-1.3); GFR > 60 ML/MIN (>=60 (CALC)); GFR FOR AFR.AMER. > 60 ML/MIN (>=60 (CALC)); LIPASE 75 u/l (23-300); POTASSIUM 4.1 mmol/l (3.5-5.1); SGOT/AST 24 u/l (19-48); SODIUM 130 mmol/l (137-146); TOTAL PROTEIN 5.8 g/dL (6.3-8.2)
[2019-11-20] MEDS ORDERED: PROVENTIL0.083 % IN (19:10)
[2019-11-20 19:14] LABS: C-REACTIVE PROTEIN 16.5 mg/dL (0-0.9)
[2019-11-20] MEDS ORDERED: NUTREN PO (19:20)
[2019-11-20 20:44] LABS: URINE BILIRUBIN - DIPSTICK NEGATIVE (NEGATIVE); URINE BLOOD DIPSTICK NEGATIVE (NEGATIVE); URINE COLOR YELLOW; URINE GLUCOSE - DIPSTICK NEGATIVE (NEGATIVE); URINE KETONE NEGATIVE (NEGATIVE); URINE LEUK ESTERASE NEGATIVE (NEGATIVE); URINE NITRITE - DIPSTICK NEGATIVE (Negative); URINE PH 7.5 (4.5-8.0); URINE PROTEIN - DIPSTICK NEGATIVE (NEG-TRACE); URINE SPECIFIC GRAVITY <=1.005; URINE UROBILINOGEN - DIPSTICK 0.2 E.U./dL (0.2)
[2019-11-20] MEDS ORDERED: PREDNISONE50 MG PO (21:10)
[2019-11-20] MEDS ORDERED: DOXYCYC MONO100 M1 PO (21:10)
[2019-11-20 21:24] VITALS: BP 111/62
--- NOTE | 2019-11-23 13:02 | NUR ---
Notified patient of Negative Covid results.
== END 2019-11-20 21:54 | disposition home or self-care (01) | DRG 192 ==
LOC: ED 17:31
PROVIDERS: Family Medicine
DX: J44.1 Chronic obstructive pulmonary disease with (acute) exacerbation (principal); M25.50 Pain in unspecified joint; E11.9 Type 2 diabetes mellitus without complications; I10 Essential (primary) hypertension; I25.2 Old myocardial infarction; Z95.5 Presence of coronary angioplasty implant and graft; Z79.84 Long term (current) use of oral hypoglycemic drugs; Z93.1 Gastrostomy status; Z20.828 Contact with and (suspected) exposure to other viral communicable diseases
CPT/HCPCS: J0131; J0692; Q9967

== ENCOUNTER 2019-12-05 12:48 | Emergency (ER) | payer OTHER, MEDICARE ==
[~2019-12-05 12:48] MED LIST changes: +DOXYCYC MONO100 M1 PO; +NUTREN PO; +PREDNISONE50 MG PO; +PROVENTIL0.083 % IN
[2019-12-05 13:41] LABS: HEMATOCRIT 35.9 % (39.0-50.0); HEMOGLOBIN 11.3 g/dl (14.0-18.0); IMMATURE GRANULOCYTES 0.6 % (0.0-5.0); MEAN CELL VOLUME 93.7 fL CALC (80.0-100.0); MEAN CORPUSCULAR HGB 29.5 pG CALC (26.0-32.0); MEAN CORPUSCULAR HGB CONC 31.5 g/dL CAL (32.0-36.0); NEUT# 11.18 thou/uL (1.82-7.42); RED BLOOD COUNT 3.83 mill/uL (4.70-6.10); RED CELL DISTRI WIDTH 14.9 % (11.5-15.5)
[2019-12-05 13:59] LABS: ALBUMIN 3.2 g/dL (3.2-5.0); ALKALINE PHOSPHATASE 74 u/l (38-126); ANION GAP 11 (6-22 (CALC)); BILIRUBIN, TOTAL 0.6 mg/dL (0.0-1.4); BUN 11 mg/dL (8-23); BUN/CREATININE RATIO 19 (12-20 (CALC)); CARBON DIOXIDE 26 mmol/l (22-30); CHLORIDE 100 mmol/l (95-108); CREATININE 0.6 mg/dL (0.7-1.3); GFR > 60 ML/MIN (>=60 (CALC)); GFR FOR AFR.AMER. > 60 ML/MIN (>=60 (CALC)); POTASSIUM 4.3 mmol/l (3.5-5.1); SGOT/AST 20 u/l (19-48); SODIUM 133 mmol/l (137-146); TOTAL PROTEIN 5.8 g/dL (6.3-8.2)
[2019-12-05] MEDS ORDERED: PREDNISONE20 MG PO ×2 (14:55)
[2019-12-05] MEDS ORDERED: KEFLEX500 M1 PO ×2 (14:55)
[2019-12-05 15:10] VITALS: BP 113/66
== END 2019-12-05 15:10 | disposition home or self-care (01) | DRG 603 ==
LOC: ED 12:48
DX: L03.115 Cellulitis of right lower limb (principal); M25.571 Pain in right ankle and joints of right foot; M25.561 Pain in right knee; M25.522 Pain in left elbow; E11.9 Type 2 diabetes mellitus without complications; I10 Essential (primary) hypertension; J44.9 Chronic obstructive pulmonary disease, unspecified; M10.9 Gout, unspecified; I25.2 Old myocardial infarction; Z95.5 Presence of coronary angioplasty implant and graft

== ENCOUNTER 2020-01-03 22:08 | Emergency (ER) | payer OTHER, MEDICARE ==
[~2020-01-03] VITALS: Ht 180.3 cm; Wt 64.5 kg
[~2020-01-03 22:08] MED LIST changes: +KEFLEX500 M1 PO; +PREDNISONE20 MG PO
[2020-01-03 23:06] LABS: HEMATOCRIT 34.8 % (39.0-50.0); HEMOGLOBIN 11.2 g/dl (14.0-18.0); IMMATURE GRANULOCYTES 0.3 % (0.0-5.0); MEAN CELL VOLUME 92.1 fL CALC (80.0-100.0); MEAN CORPUSCULAR HGB 29.6 pG CALC (26.0-32.0); MEAN CORPUSCULAR HGB CONC 32.2 g/dL CAL (32.0-36.0); NEUT# 4.4 thou/uL (1.82-7.42); RED BLOOD COUNT 3.78 mill/uL (4.70-6.10); RED CELL DISTRI WIDTH 15.3 % (11.5-15.5)
[2020-01-03 23:18] LABS: ALKALINE PHOSPHATASE 74 u/l (38-126); ANION GAP 12 (6-22 (CALC)); BUN 15 mg/dL (8-23); BUN/CREATININE RATIO 21 (12-20 (CALC)); CARBON DIOXIDE 21 mmol/l (22-30); CHLORIDE 100 mmol/l (95-108); CREATININE 0.7 mg/dL (0.7-1.3); GFR > 60 ML/MIN (>=60 (CALC)); GFR FOR AFR.AMER. > 60 ML/MIN (>=60 (CALC)); LIPASE 208 u/l (23-300); SGOT/AST 31 u/l (19-48); SODIUM 129 mmol/l (137-146); TOTAL PROTEIN 6.3 g/dL (6.3-8.2)
[2020-01-03 23:19] LABS: ALBUMIN 3.9 g/dL (3.2-5.0); BILIRUBIN, TOTAL 0.3 mg/dL (0.0-1.4)
[2020-01-04] MEDS ORDERED: KEFLEX500 MG PO ×2 (00:03)
[2020-01-04 00:18] VITALS: BP 154/84
== END 2020-01-04 00:26 | disposition home or self-care (01) | DRG 395 ==
LOC: ED 22:08
DX: K94.29 Other complications of gastrostomy (principal); E11.9 Type 2 diabetes mellitus without complications; I10 Essential (primary) hypertension; J44.9 Chronic obstructive pulmonary disease, unspecified; I25.2 Old myocardial infarction; Z95.5 Presence of coronary angioplasty implant and graft; Z79.84 Long term (current) use of oral hypoglycemic drugs

== ENCOUNTER 2020-03-07 18:37 | Emergency (ER) | payer OTHER, MEDICARE ==
[~2020-03-07] VITALS: Ht 180.3 cm; Wt 68.0 kg
[~2020-03-07 18:37] MED LIST changes: +KEFLEX500 MG PO
[2020-03-07 19:04] LABS: HEMATOCRIT 34.1 % (39.0-50.0); HEMOGLOBIN 11.3 g/dl (14.0-18.0); IMMATURE GRANULOCYTES 0.3 % (0.0-5.0); MEAN CELL VOLUME 92.2 fL CALC (80.0-100.0); MEAN CORPUSCULAR HGB 30.5 pG CALC (26.0-32.0); MEAN CORPUSCULAR HGB CONC 33.1 g/dL CAL (32.0-36.0); NEUT# 2.78 thou/uL (1.82-7.42); RED BLOOD COUNT 3.7 mill/uL (4.70-6.10); RED CELL DISTRI WIDTH 15.5 % (11.5-15.5)
[2020-03-07 19:22] LABS: ALBUMIN 3.9 g/dL (3.2-5.0); ALKALINE PHOSPHATASE 79 u/l (38-126); ANION GAP 13 (6-22 (CALC)); BUN 15 mg/dL (8-23); BUN/CREATININE RATIO 20 (12-20 (CALC)); CARBON DIOXIDE 25 mmol/l (22-30); CHLORIDE 98 mmol/l (95-108); CREATININE 0.8 mg/dL (0.7-1.3); GFR > 60 ML/MIN (>=60 (CALC)); GFR FOR AFR.AMER. > 60 ML/MIN (>=60 (CALC)); SGOT/AST 50 u/l (19-48); SODIUM 131 mmol/l (137-146); TOTAL PROTEIN 6.7 g/dL (6.3-8.2)
[2020-03-07 19:29] LABS: BILIRUBIN, TOTAL 0.7 mg/dL (0.0-1.4)
[2020-03-07] MEDS ORDERED: TAMSULOSIN0.4 MG PO ×2 (21:01)
[2020-03-07 21:10] VITALS: BP 137/72
== END 2020-03-07 21:12 | disposition home or self-care (01) | DRG 552 ==
LOC: ED 18:37
PROVIDERS: Family Medicine
DX: S33.5XXA Sprain of ligaments of lumbar spine, initial encounter (principal); S09.90XA Unspecified injury of head, initial encounter; F10.10 Alcohol abuse, uncomplicated; N32.89 Other specified disorders of bladder; C61 Malignant neoplasm of prostate; E11.9 Type 2 diabetes mellitus without complications; I10 Essential (primary) hypertension; J44.9 Chronic obstructive pulmonary disease, unspecified; I25.2 Old myocardial infarction; W18.39XA Other fall on same level, initial encounter; Y92.009 Unspecified place in unspecified non-institutional (private) residence as the place of occurrence of the external cause; Z93.1 Gastrostomy status; Z95.5 Presence of coronary angioplasty implant and graft

== ENCOUNTER 2020-03-13 13:03 | Emergency (ER) | payer OTHER, MEDICARE ==
[~2020-03-13] VITALS: Ht 180.3 cm; Wt 65.0 kg
[~2020-03-13 13:03] MED LIST changes: +TAMSULOSIN0.4 MG PO
[2020-03-13] MEDS ORDERED: BACTROBAN TOP ×2 (14:01)
[2020-03-13] MEDS ORDERED: KEFLEX500 M1 PO ×2 (14:01)
[2020-03-13 14:45] VITALS: BP 183/89
== END 2020-03-13 14:45 | disposition home or self-care (01) | DRG 394 ==
LOC: ED 13:03
DX: K94.22 Gastrostomy infection (principal); L03.311 Cellulitis of abdominal wall; E11.9 Type 2 diabetes mellitus without complications; I10 Essential (primary) hypertension; J44.9 Chronic obstructive pulmonary disease, unspecified; I25.2 Old myocardial infarction; Y83.3 Surgical operation with formation of external stoma as the cause of abnormal reaction of the patient, or of later complication, without mention of misadventure at the time of the procedure; Z95.5 Presence of coronary angioplasty implant and graft

== ENCOUNTER 2020-03-16 14:33 | Emergency (ER) | payer OTHER, MEDICARE ==
[~2020-03-16] VITALS: Ht 180.3 cm; Wt 70.0 kg
[~2020-03-16 14:33] MED LIST changes: +BACTROBAN TOP
[2020-03-16 15:55] LABS: HEMATOCRIT 35.8 % (39.0-50.0); HEMOGLOBIN 11.9 g/dl (14.0-18.0); IMMATURE GRANULOCYTES 0.5 % (0.0-5.0); MEAN CELL VOLUME 93.2 fL CALC (80.0-100.0); MEAN CORPUSCULAR HGB CONC 33.2 g/dL CAL (32.0-36.0); NEUT# 2.71 thou/uL (1.82-7.42); RED BLOOD COUNT 3.84 mill/uL (4.70-6.10); RED CELL DISTRI WIDTH 15.7 % (11.5-15.5)
[2020-03-16 16:07] LABS: ALKALINE PHOSPHATASE 96 u/l (38-126); ANION GAP 15 (6-22 (CALC)); BUN 17 mg/dL (8-23); BUN/CREATININE RATIO 24 (12-20 (CALC)); CARBON DIOXIDE 22 mmol/l (22-30); CHLORIDE 103 mmol/l (95-108); CREATININE 0.7 mg/dL (0.7-1.3); GFR > 60 ML/MIN (>=60 (CALC)); GFR FOR AFR.AMER. > 60 ML/MIN (>=60 (CALC)); POTASSIUM 4.1 mmol/l (3.5-5.1); SGOT/AST 55 u/l (19-48); SODIUM 135 mmol/l (137-146); TOTAL PROTEIN 6.8 g/dL (6.3-8.2)
[2020-03-16 16:08] LABS: BILIRUBIN, TOTAL 0.4 mg/dL (0.0-1.4)
[2020-03-16 16:18] LABS: MYOGLOBIN 27 ng/mL (0 - 121)
[2020-03-16 16:22] LABS: URINE BILIRUBIN - DIPSTICK NEGATIVE (NEGATIVE); URINE BLOOD DIPSTICK NEGATIVE (NEGATIVE); URINE COLOR YELLOW; URINE GLUCOSE - DIPSTICK NEGATIVE (NEGATIVE); URINE KETONE NEGATIVE (NEGATIVE); URINE LEUK ESTERASE NEGATIVE (NEGATIVE); URINE NITRITE - DIPSTICK NEGATIVE (Negative); URINE PH 5.5 (4.5-8.0); URINE PROTEIN - DIPSTICK NEGATIVE (NEG-TRACE); URINE UROBILINOGEN - DIPSTICK 0.2 E.U./dL (0.2)
[2020-03-16 16:38] LABS: TSH, 3RD GENERATION 1.43 uIU/mL (0.47 - 4.68)
[2020-03-16] MEDS ORDERED: TAMSULOSIN HCL0.4 MG PO (16:56)
[2020-03-16 17:12] VITALS: BP 166/89
== END 2020-03-16 17:19 | disposition home or self-care (01) | DRG 309 ==
LOC: ED 14:33
PROVIDERS: Emergency Medicine
DX: R00.2 Palpitations (principal); K94.22 Gastrostomy infection; I10 Essential (primary) hypertension; E11.9 Type 2 diabetes mellitus without complications; J44.9 Chronic obstructive pulmonary disease, unspecified; I25.2 Old myocardial infarction; T36.96XA Underdosing of unspecified systemic antibiotic, initial encounter; Z91.120 Patient's intentional underdosing of medication regimen due to financial hardship; Z95.5 Presence of coronary angioplasty implant and graft; Y83.3 Surgical operation with formation of external stoma as the cause of abnormal reaction of the patient, or of later complication, without mention of misadventure at the time of the procedure

== ENCOUNTER 2020-05-16 11:08 | Emergency (ER) | payer OTHER, MEDICARE ==
[~2020-05-16] VITALS: Ht 180.3 cm; Wt 80.0 kg
[2020-05-16] MEDS ORDERED: BACTROBAN TOP ×2 (12:58→13:21)
[2020-05-16] MEDS ORDERED: KEFLEX500 M1 PO ×2 (12:58→13:21)
[2020-05-16 13:04] VITALS: BP 128/76
== END 2020-05-16 13:04 | disposition home or self-care (01) | DRG 394 ==
LOC: ED 11:08
DX: K94.22 Gastrostomy infection (principal); L03.311 Cellulitis of abdominal wall; E11.9 Type 2 diabetes mellitus without complications; I10 Essential (primary) hypertension; I25.2 Old myocardial infarction; J44.9 Chronic obstructive pulmonary disease, unspecified; Y83.3 Surgical operation with formation of external stoma as the cause of abnormal reaction of the patient, or of later complication, without mention of misadventure at the time of the procedure; Z95.5 Presence of coronary angioplasty implant and graft

== ENCOUNTER 2020-06-05 15:06 | Emergency (ER) | payer OTHER, MEDICARE ==
[~2020-06-05] VITALS: Ht 180.3 cm; Wt 70.0 kg
[2020-06-05] MEDS ORDERED: OMNI-PAC300 MG PO (15:21)
[2020-06-05] MEDS ORDERED: BACTRIM DS1 TAB PO (15:33)
[2020-06-05 15:45] VITALS: BP 158/90
== END 2020-06-05 15:45 | disposition home or self-care (01) | DRG 394 ==
LOC: ED 15:06
DX: K94.22 Gastrostomy infection (principal); L03.311 Cellulitis of abdominal wall; E11.9 Type 2 diabetes mellitus without complications; I10 Essential (primary) hypertension; J44.9 Chronic obstructive pulmonary disease, unspecified; I25.2 Old myocardial infarction; Y83.3 Surgical operation with formation of external stoma as the cause of abnormal reaction of the patient, or of later complication, without mention of misadventure at the time of the procedure; Z95.5 Presence of coronary angioplasty implant and graft

== ENCOUNTER 2020-06-27 15:16 | Observation (INO) | payer OTHER, MEDICARE ==
[~2020-06-27] VITALS: Ht 185.4 cm; Wt 64.0 kg
[~2020-06-27 15:16] MED LIST changes: +BACTRIM DS1 TAB PO; +OMNI-PAC300 MG PO
--- NOTE | 2020-06-27 15:20 | NUR ---
PT WHEELED TO ROOM # 12 FOR BEDSIDE TRIAGE. KEVEN ROBERTSON BEDSIDE FOR EVAL.
[2020-06-27 15:54] LABS: HEMATOCRIT 36.7 % (39.0-50.0); HEMOGLOBIN 12.3 g/dl (14.0-18.0); IMMATURE GRANULOCYTES 0.6 % (0.0-5.0); MEAN CELL VOLUME 97.3 fL CALC (80.0-100.0); MEAN CORPUSCULAR HGB 32.6 pG CALC (26.0-32.0); MEAN CORPUSCULAR HGB CONC 33.5 g/dL CAL (32.0-36.0); NEUT# 3.57 thou/uL (1.82-7.42); RED BLOOD COUNT 3.77 mill/uL (4.70-6.10)
[2020-06-27 16:11] LABS: ALBUMIN 4.1 g/dL (3.2-5.0); ALKALINE PHOSPHATASE 119 u/l (38-126); ANION GAP 17 (6-22 (CALC)); BUN 13 mg/dL (8-23); BUN/CREATININE RATIO 10 (12-20 (CALC)); CARBON DIOXIDE 19 mmol/l (22-30); CHLORIDE 103 mmol/l (95-108); CREATININE 1.3 mg/dL (0.7-1.3); GFR 54 ML/MIN (>=60 (CALC)); GFR FOR AFR.AMER. > 60 ML/MIN (>=60 (CALC)); POTASSIUM 4.5 mmol/l (3.5-5.1); SODIUM 135 mmol/l (137-146); TOTAL PROTEIN 6.7 g/dL (6.3-8.2)
[2020-06-27 16:13] LABS: BILIRUBIN, TOTAL 0.6 mg/dL (0.0-1.4); SGOT/AST 113 u/l (19-48)
--- NOTE | 2020-06-27 16:30 | NUR ---
PT RESTING ON STRETCHER WITH EYES OPEN. RESP EVEN AND UNLABORED. SKIN WARM AND DRY. METAL SOLDERER IN PLACE. ADVISED OF CONT WAIT TIME FOR RESULTS. VERBALIZED UNDERSTANDIGN. DENIES ANY NEEDS. CALL LIGHT WITHIN REACH.
--- NOTE | 2020-06-27 17:40 | NUR ---
SWABS COLLECTED PER DR WOODARD ORDER. TOLERATED WELL. ADVISED OF WAIT TIME FOR RESULTS. VERBALIZED UNDERSTANDING. BLACK BELT IN PLACE. DENIES ANY NEEDS. CALL LIGHT WITHIN REACH.
--- NOTE | 2020-06-27 17:46 | NUR ---
PT UNABLE TO RECALL NAMES OF MEDICATIONS HE TAKES, STATES HE TAKES ABOUT 12 MEDICATIONS IN THE AM AND 5 AT NIGHT
--- NOTE | 2020-06-27 18:59 | NUR ---
GAVE REPORT TO EFRAIN
[2020-06-27 19:23] LABS: URINE BILIRUBIN - DIPSTICK NEGATIVE (NEGATIVE); URINE BLOOD DIPSTICK NEGATIVE (NEGATIVE); URINE CLARITY CLEAR; URINE COLOR YELLOW; URINE GLUCOSE - DIPSTICK NEGATIVE (NEGATIVE); URINE KETONE NEGATIVE (NEGATIVE); URINE LEUK ESTERASE NEGATIVE (Negative); URINE NITRITE - DIPSTICK NEGATIVE (Negative); URINE PROTEIN - DIPSTICK NEGATIVE (NEG-TRACE); URINE SPECIFIC GRAVITY <=1.005; URINE UROBILINOGEN - DIPSTICK 0.2 E.U./dL (0.2)
--- NOTE | 2020-06-27 19:30 | NUR ---
RESTING QUIETLY. NO C/O.
[2020-06-27] MEDS ORDERED: BACTRIM DS1 TAB PO (20:10)
[2020-06-27] MEDS ORDERED: MUPIROCIN2 % EX (20:11)
[2020-06-27] MEDS ORDERED: ZYLOPRIM300 MG PO (20:11)
[2020-06-27] MEDS ORDERED: VOLTAREN1%GEL TOP (20:13)
[2020-06-27] MEDS ORDERED: PLAVIX75 MG PO (20:15)
[2020-06-27] MEDS ORDERED: SIMVASTATIN80 MG PO (20:15)
[2020-06-27] MEDS ORDERED: ZESTRIL5 M1 PO (20:19)
[2020-06-27] MEDS ORDERED: COLCHICINE0.6 M2 PO (20:19)
[2020-06-27] MEDS ORDERED: MAGNEBIND400 MG PO (20:20)
[2020-06-27] MEDS ORDERED: METOPROL TAR25 M1 PO (20:21)
[2020-06-27] MEDS ORDERED: MIRALAX17 GM PO (20:23)
[2020-06-27] MEDS ORDERED: POTASSIUM CHLO10 MEQ PO (20:24)
[2020-06-27] MEDS ORDERED: TAMSULOSIN HCL0.4 MG PO (20:25)
[2020-06-27] MEDS ORDERED: FLEXERIL5 M1 PO (20:26)
[2020-06-27] MEDS ORDERED: PROVENTIL0.083 % IN (20:27)
[2020-06-27] MEDS ORDERED: PROVENTIL HFA IN (20:28)
[2020-06-27] MEDS ORDERED: MOMETASONE IN (20:30)
[2020-06-27] MEDS ORDERED: [UNRECOGNIZED DRUG - OTHER] IN (20:30)
--- NOTE | 2020-06-27 20:30 | NUR ---
SPOKE WITH PT'S SPOUSE, FRANCI SHAW AT TO OBTAIN PT'S HOME MEDICATION LIST. MEDICATION RECONCILIATION COMPLETED REPORTED BY PT'S SPOUSE.
[2020-06-27] MEDS ORDERED: STIOLTO RESPIMA1 AER IN (20:32)
--- NOTE | 2020-06-27 20:43 | NUR ---
MEDICATED FOR TACHYCARDIA. EXPLAINED TO PT THAT HE WILL BE IN ER FOR A WHILE. WILL TRY TO [facility] BED FOR COMFORT.
--- NOTE | 2020-06-27 21:38 | NUR ---
VOIDED 650 CC CLEAR YELLOW URINE. FLUSHED PEG TUBE WITH 250 CC TAP WATER.
--- NOTE | 2020-06-27 23:00 | NUR ---
RESTING QUIETLY AWAITING TRANSFER TO FLOOR.
--- NOTE | 2020-06-28 00:03 | NUR ---
REPORT RECEIVED FROM Alysa FOSTER RN AT BEDSIDE IN ED, PT PREPARED TO BE TRANSFERED TO [place] VIA .
[2020-06-28 00:10] VITALS: BP 166/89
--- NOTE | 2020-06-28 00:10 | NUR ---
PT TRANSPORTED TO UNIT VIA AT 0010. PT ADMITTED TO ROOM 270. AMBULATORY TO BED. ORIENTED TO UNIT, ROOM, BED, CALL CARRERA/TV/LIGHT SYSTEM. ADMISSION ASSESMENT COMPLETED. PLAN OF CARE REVIEWED. PT VERBALIZES UNDERSTANDING AND DENIES QUESTIONS. PT DENIES NEEDS AT THIS TIME. CALL CARRERA WITHIN REACH, AGREES TO CALL PRN.
--- NOTE | 2020-06-28 00:10 | NUR ---
Admission Note Report Given to: KARLIE BEDOYA Transported by: X Wheelchair Stretcher Transported with: X Nurse Transporter X Patent IV O2 X Fund Development Manager Location: ICU X MS2
[2020-06-28 04:00] VITALS: BP 164/90
--- NOTE | 2020-06-28 04:10 | NUR ---
PER ED RECORD KEEPER AND VS TAKEN BY Chava YIP CNA. PT'S HR IS 130'S. ON MONITOR PT IS ST 130'S-140'S SUSTAINED. PT IS RESTING IN BED. CALM AND ASYMPTOMATIC. Nellie KUO APRN NOTIFIED. ORDER RECEIVED TO REPEAT LOPRESSOR 5MG IV X1 AND ADD MG TO AM LABS.
--- NOTE | 2020-06-28 05:40 | NUR ---
F/U AFTER IV LOPRESSOR ADMINISTRATION; PER TELLERS SUPERVISOR PT IS ST IN THE 120'S AND BELOW. THIS REPRESENTS PT'S BASELINE HR AT ADMISSION AND ED. WILL CON'T TO MONITOR.
[2020-06-28 05:47] LABS: HEMATOCRIT 34.7 % (39.0-50.0); HEMOGLOBIN 11.9 g/dl (14.0-18.0); IMMATURE GRANULOCYTES 0.7 % (0.0-5.0); MEAN CELL VOLUME 95.3 fL CALC (80.0-100.0); MEAN CORPUSCULAR HGB 32.7 pG CALC (26.0-32.0); MEAN CORPUSCULAR HGB CONC 34.3 g/dL CAL (32.0-36.0); NEUT# 3.84 thou/uL (1.82-7.42); RED BLOOD COUNT 3.64 mill/uL (4.70-6.10); RED CELL DISTRI WIDTH 14.1 % (11.5-15.5)
[2020-06-28 06:28] LABS: ALBUMIN 3.7 g/dL (3.2-5.0); ALKALINE PHOSPHATASE 129 u/l (38-126); ANION GAP 13 (6-22 (CALC)); BILIRUBIN, TOTAL 0.7 mg/dL (0.0-1.4); BUN 10 mg/dL (8-23); BUN/CREATININE RATIO 10 (12-20 (CALC)); CARBON DIOXIDE 22 mmol/l (22-30); CHLORIDE 105 mmol/l (95-108); GFR > 60 ML/MIN (>=60 (CALC)); GFR FOR AFR.AMER. > 60 ML/MIN (>=60 (CALC)); MAGNESIUM 1.9 mg/dL (1.6-2.3); SGOT/AST 115 u/l (19-48); SODIUM 135 mmol/l (137-146); TOTAL PROTEIN 6.2 g/dL (6.3-8.2)
--- NOTE | 2020-06-28 06:35 | NUR ---
PT note Patient is screened for PT intervention and no needs are identified at this time
[2020-06-28 07:58] VITALS: BP 163/92
--- NOTE | 2020-06-28 08:00 | NUR ---
REPORT WAS RECEIVED FROM ELKE AND HE STATED MD AWARE OF PATIENT HEART RATE READING 120-130. ASSESSMENT DONE. TELE IN PLACE TELE READING ST 126. PATEINT DENIES PAIN AT THIS TIME. RESPS EVEN AND UNLABORED. PEG TUBE IN PLACE AND PATIENT STATED IT HAS NOT BEEN USE FOR FEEDING. ALSO THAT THEY WILL REMOVE PEG TUBE NEXT MONTH. PATIENT DENIES ANY NEEDS AT THIS TIME. CALL LIGHT IN REACH.
[2020-06-28 11:16] VITALS: BP 141/88
--- NOTE | 2020-06-28 12:30 | NUR ---
ED CALLED STATED PULSE PER TELE READING IS 130. PATIENT IS SITTING IN THE SIDE OF THE BED EATING HIS LUNCH. WITH NO S/S OF DISTRESS NOTED. CHECK PATIENT PULSE IS 129. NOTIFIED JYOTSNA WILLIAMSON. HE STATED WILL REVIEW.
--- NOTE | 2020-06-28 13:33 | NUR ---
PATIENT IS RESTING IN BED WITH NO S/S OF DISTRESS NOTED. PEG TUBE CHANGE. CALL LIGHT IN REACH.
--- NOTE | 2020-06-28 13:46 | NUR ---
PATIENT CALLED STATING HER CONCERNS ABOUT PEG TUBE. WE DISCUSS POC OF PATIENT. ALSO, PATIENT TALKED TO JYOTSNA WILLIAMSON ABOUT HER CONCERNS.
[2020-06-28 15:39] VITALS: BP 122/77
--- NOTE | 2020-06-28 15:41 | NUR ---
PATIENT IS RESTING IN BED WITH NO S/S OF DISTRESS NOTED. TELE IN PLACE. CHECKED PATIENT PULSE IS 123. MEDICATED PATIENT WITH CARDIZEM PER ORDER. PATIENT DENIES ANY NEEDS AT THIS TIME. CALL LIGHT IN REACH.
[2020-06-28 19:00] VITALS: BP 117/76
--- NOTE | 2020-06-28 20:03 | NUR ---
PHYSICAL ASSESMENT COMPLETE. PT CURRENTLY DENIES PAIN OR DISCOMFORT. SCHEDULED MEDICATIONS AND PRN MEDICATION ADMINISTERED, SEE E-MAR. PT DENIES ANY NEEDS AT THIS TIME. PLAN OF CARE REVIEWED, PT DENIES QUESTIONS, VERBALIZES UNDERSTANDING. ITEMS WITHIN REACH, BED LOCKED IN LOW POSITION W/ BEDRAILS UP X2. CALL CARRERA WITHIN REACH, AGREES TO CALL PRN.
[2020-06-29] VITALS: BP 119/70
--- NOTE | 2020-06-29 00:03 | NUR ---
PT LAYING IN BED WITH EYES CLOSED, APPEARS TO BE SLEEPING, APPEARS COMFORTABLE AND IN NO DISTRESS. RESPIRATIONS REGULAR AND UNLABORED. ITEMS REMAIN WITHIN REACH, CALL CARRERA REMAINS WITHIN REACH. BED REMAINS LOCKED AND IN LOW POSITION WITH BEDRAILS UP X2. WILL CONTINUE TO MONITOR.
[2020-06-29 04:00] VITALS: BP 122/67
--- NOTE | 2020-06-29 04:00 | NUR ---
PT RESTING IN BED, NO SIGNS OF DISTRESS NOTED, RESP EVEN AND UNLABORED. PT VOICES NO NEEDS OR COMPLAINTS AT THIS TIME. CALL LIGHT IN REACH, CONTINUE TO MONITOR.
[2020-06-29 05:47] LABS: HEMATOCRIT 34.7 % (39.0-50.0); HEMOGLOBIN 11.7 g/dl (14.0-18.0); MEAN CELL VOLUME 97.2 fL CALC (80.0-100.0); MEAN CORPUSCULAR HGB 32.8 pG CALC (26.0-32.0); MEAN CORPUSCULAR HGB CONC 33.7 g/dL CAL (32.0-36.0); NEUT# 11.55 thou/uL (1.82-7.42); RED BLOOD COUNT 3.57 mill/uL (4.70-6.10); RED CELL DISTRI WIDTH 14.6 % (11.5-15.5)
[2020-06-29 06:08] LABS: ALBUMIN 3.7 g/dL (3.2-5.0); ALKALINE PHOSPHATASE 106 u/l (38-126); ANION GAP 12 (6-22 (CALC)); BILIRUBIN, TOTAL 0.5 mg/dL (0.0-1.4); BUN 19 mg/dL (8-23); BUN/CREATININE RATIO 19 (12-20 (CALC)); CARBON DIOXIDE 24 mmol/l (22-30); CHLORIDE 102 mmol/l (95-108); GFR > 60 ML/MIN (>=60 (CALC)); GFR FOR AFR.AMER. > 60 ML/MIN (>=60 (CALC)); POTASSIUM 4.3 mmol/l (3.5-5.1); SGOT/AST 67 u/l (19-48); SODIUM 134 mmol/l (137-146); TOTAL PROTEIN 6.3 g/dL (6.3-8.2)
[2020-06-29 07:42] VITALS: BP 124/73
--- NOTE | 2020-06-29 07:42 | NUR ---
PT RESTING IN BED, NO SIGNS OF DISTRESS NOTED, RESP EVEN AND UNLABORED. PT ALERT AND ORIENTED X3, DISCUSSED POC, VITALS OBTAINED, PT HAS A PEG TUBE, ASSESSMENT COMPLETED, CALL LIGHT IN REACH,CONTINUE TO MONITOR, CALL LIGHT IN REACH,CONTINUE TO MONITOR.
--- NOTE | 2020-06-29 08:25 | NUR ---
PT AT BEDSIDE FOR SWALLOW EVAL, STATES PT DID WELL.
[2020-06-29 11:38] VITALS: BP 105/58
--- NOTE | 2020-06-29 11:43 | NUR ---
PT RESTING IN BED ON PHONE, NO SIGNS OF DISTRESS NOTED, RESP EVEN AND UNLABORED. CALL LIGHT IN REACH,CONTINUE TO MONITOR.
--- NOTE | 2020-06-29 13:47 | NUR ---
PT AMBULATED BY RT AT THIS TIME, CONTINUE TO MONITOR.
[2020-06-29 14:45] VITALS: BP 117/54
[2020-06-29] MEDS ORDERED: Levaquin PO (15:21)
[2020-06-29] MEDS ORDERED: CARDIZEM CD120 MG PO (15:23)
[2020-06-29] MEDS ORDERED: XOPENEX HF45 MCG/ACT IN (15:25)
[2020-06-29] MEDS ORDERED: HYDROCO/APAP1 TA9 PO (15:27)
[2020-06-29] MEDS ORDERED: XANAX0.25 MG PO (15:27)
[2020-06-29] MEDS ORDERED: LEVALBUTER1.25 MG/3 NEB (15:27)
[2020-06-29] MEDS ORDERED: MEDDOSEPAK PO (15:35)
--- NOTE | 2020-06-29 16:25 | NUR ---
Discharge instructions given. Patient verbalizes understanding of same. Discharged in stable condition via Wheelchair to Home with family. All belongings sent with pt.
== END 2020-06-29 16:30 | disposition home health service (06) | DRG 309 ==
LOC: ED 15:16 → ED-I 15:55 → ED 20:02 → ED-I 20:03 → MS2 20:03
PROVIDERS: Family Medicine; Nurse Practitioner; Nurse Practitioner Family; ADMIT Internal Medicine; ATTEND Internal Medicine
DX: R00.0 Tachycardia, unspecified (principal); J44.1 Chronic obstructive pulmonary disease with (acute) exacerbation; L03.311 Cellulitis of abdominal wall; E11.9 Type 2 diabetes mellitus without complications; I10 Essential (primary) hypertension; I25.10 Atherosclerotic heart disease of native coronary artery without angina pectoris; L98.9 Disorder of the skin and subcutaneous tissue, unspecified; E78.5 Hyperlipidemia, unspecified; N40.0 Benign prostatic hyperplasia without lower urinary tract symptoms; M10.9 Gout, unspecified; M54.2 Cervicalgia; G89.29 Other chronic pain; F10.10 Alcohol abuse, uncomplicated; I25.2 Old myocardial infarction; Z93.1 Gastrostomy status; Z95.5 Presence of coronary angioplasty implant and graft; Z87.891 Personal history of nicotine dependence; Z20.828 Contact with and (suspected) exposure to other viral communicable diseases
CPT/HCPCS: J1650; J1956; Q9967